=== PATIENT | male | born 1990 | race Caucasian/White ===

== ENCOUNTER 2016-11-13 13:25 | Emergency (ER) | payer OTHER ==
[~2016-11-13] VITALS: Ht 160 cm; Wt 122.8 kg
[~2016-11-13 13:25] MED LIST: ASPI325T45 PO; OXYC1TAB3 PO
[2016-11-13 13:44] VITALS: TEMP 36.9; Ht 160 cm; Wt 122.8 kg
[2016-11-13] MEDS ORDERED: SODIUM CHLORIDE 0.9% 1000ML 1,000 ML IV STA (14:16)
--- NOTE | 2016-11-13 14:54 | EMERGENCY ROOM VISIT NOTE ---
History First contact with patient: 14:03 Chief Complaint: BACK PAIN Stated Complaint: BACK PAIN History of Present Illness The patient is a 26 year old male who presents to the Emergency Room with complaints of right flank pain. The patient states that he has had pain in the low back and right flank for the last 4 days. He denies any injury. The patient rates his pain as 6/10. The patient states that the pain is across the low back, worse in the right low back and radiates to the right testicle. The pain is intermittent and sharp. He rates his discomfort a 6/10. The patient did notice 1 episode of bloody discharge from his penis. He denies any other discharge from his penis. He denies any dysuria, urgency or frequency. He denies any history of kidney stone. The patient was seen at [place] [facility] last night and had an x-ray of his low back and was given a prescription for Percocet. He states that he was concerned that there may be more going on. He did not fill the prescription for Percocet. Review of Systems A 10 system review of systems was completed with positives and pertinent negatives listed in the HPI. Past Medical/Surgical History None Social History Smoking Status: Current Some Day Smoker Alcohol Use: none Marital Status: single Housing Status: lives with significant other Occupation Status: employed Current/Historical Medications Scheduled Ciprofloxacin Hcl (Cipro), 500 MG PO BID Allergies Coded Allergies: Erythromycin (Unverified Allergy, Unknown, SWELLING,HIVES, 11/13/16) Penicillins (Unverified Allergy, Unknown, SWELLING,HIVES, 11/13/16) Physical Exam Vital Signs Date Time Temp Pulse Resp B/P Pulse Ox O2 Delivery O2 Flow Rate FiO2 11/13/16 17:23 80 18 149/66 98 Room Air 11/13/16 16:01 99 18 144/73 98 Room Air 11/13/16 15:02 79 18 152/78 97 Room Air 11/13/16 13:44 36.9 86 18 166/94 97 Room Air Physical Exam VITALS: Vitals are noted on the nurse's note and reviewed by myself. Vital signs stable. The patient is afebrile GENERAL: This is a 26-year-old male, in no acute distress, nondiaphoretic, well- developed well-nourished. SKIN: The skin was without rashes, erythema, edema, or bruising. There is no tenting of the skin. Capillary reflex less than 2 seconds. HEAD: Normocephalic atraumatic. EARS: The external ears are normal in appearance EYES: Pupils equal round and reactive to light and accommodation. Conjunctivae without injection, sclerae without icterus. Extraocular movements intact. NOSE: Patent, turbinates without inflammation or discharge. MOUTH: Mucous membranes moist. Tonsils are not enlarged. Pharynx without erythema or exudate. Uvula midline. Airway patent. Tongue does not deviate. NECK: Supple without nuchal rigidity. No JVD. HEART: Regular rate and rhythm without murmurs gallops or rubs. LUNGS: Clear to auscultation bilaterally without wheezes, rales or rhonchi. No retractions or accessory muscle use. ABDOMEN: Positive bowel sounds x 4. Soft, nontender, without masses or organomegaly. Hope sign negative. : The external genitalia is normal in appearance. There is no testicular edema or tenderness. There is no discharge from the penis. There are no penile rashes. The patient does have significant point tenderness with palpation in the area of the perineum. MUSCULOSKELETAL: No muscle atrophy, erythema, or edema noted. Full range of motion in all extremities. Normal gait. Strength 5/5 throughout. NEURO: Patient was alert and oriented to person place and time. No focal neurological deficits. Medical Decision & Procedures ER Provider Diagnostic Interpretation: [~ rep ct add3]] CT SCAN OF THE ABDOMEN AND PELVIS WITHOUT IV CONTRAST CLINICAL HISTORY: Back pain. Right flank pain. COMPARISON STUDY: No priors. TECHNIQUE: CT scan of the abdomen and pelvis is performed from the lung bases to the proximal femora. Images are reviewed in the axial, sagittal, and coronal planes. IV contrast was not administered for this examination as per the referring clinician. Automated dose control exposure was utilized. CT DOSE: 1758.73 mGy.cm FINDINGS: Lung bases: The heart is normal in size and without pericardial effusion. The lung bases are clear. Gynecomastia is noted. Liver: The unenhanced liver is enlarged, measuring 20 cm in length. The liver demonstrates diffusely to most attenuation consistent with severe hepatic steatosis. Fatty sparing is seen adjacent to gallbladder fossa. There is no intrahepatic biliary ductal dilatation. Gallbladder: Unremarkable. Spleen: Normal in size and attenuation. Pancreas: Unremarkable. Adrenal glands: Unremarkable. Kidneys: The unenhanced kidneys are normal in size and without hydronephrosis. There is a 3 mm nonobstructing calculus in the interpolar right kidney and a 2 mm nonobstructing calculus in the upper pole of the left kidney. There is no evidence of contour deforming renal mass lesion. Abdominal vasculature: The abdominal aorta is normal in course and caliber. Bowel: The small bowel and colon are normal in course and caliber. There is mild colonic fecal retention. The appendix is not identified and reported surgically absent. Peritoneum: There is no intraperitoneal free air or abdominal ascites. There is a fat-containing umbilical hernia. Lymphadenopathy: None. Pelvic viscera: The bladder, prostate, and seminal vesicles are normal as visualized. Skeletal structures: No lytic or blastic lesions are seen. IMPRESSION: 1. There are no acute infectious or inflammatory findings in the abdomen or pelvis. 2. Hepatomegaly and severe hepatic steatosis. 3. There are small bilateral nonobstructing renal calculi. 4. Additional findings as above. Laboratory Results 11/13/16 14:57 Red Blood Count 4.78, Mean Corpuscular Volume 85.6, Mean Corpuscular Hemoglobin 31.4, Mean Corpuscular Hemoglobin Concent 36.7, Mean Platelet Volume 11.0, Neutrophils (%) (Auto) 70.3, Lymphocytes (%) (Auto) 21.2, Monocytes (%) (Auto) 6.5, Eosinophils (%) (Auto) 1.4, Basophils (%) (Auto) 0.2, Neutrophils # (Auto) 7.83, Lymphocytes # (Auto) 2.36, Monocytes # (Auto) 0.72, Eosinophils # (Auto) 0.16, Basophils # (Auto) 0.02 11/13/16 14:57 Test 11/13/16 14:57 11/13/16 15:00 White Blood Count 11.14 K/uL (4.8-10.8) Red Blood Count 4.78 M/uL (4.7-6.1) Hemoglobin 15.0 g/dL (14.0-18.0) Hematocrit 40.9 % (42-52) Mean Corpuscular Volume 85.6 fL (80-100) Mean Corpuscular Hemoglobin 31.4 pg (25-34) Mean Corpuscular Hemoglobin Concent 36.7 g/dl (32-36) Platelet Count 270 K/uL (130-400) Mean Platelet Volume 11.0 fL (7.4-10.4) Neutrophils (%) (Auto) 70.3 % Lymphocytes (%) (Auto) 21.2 % Monocytes (%) (Auto) 6.5 % Eosinophils (%) (Auto) 1.4 % Basophils (%) (Auto) 0.2 % Neutrophils # (Auto) 7.83 K/uL (1.4-6.5) Lymphocytes # (Auto) 2.36 K/uL (1.2-3.4) Monocytes # (Auto) 0.72 K/uL (0.11-0.59) Eosinophils # (Auto) 0.16 K/uL (0-0.5) Basophils # (Auto) 0.02 K/uL (0-0.2) RDW Standard Deviation 38.9 fL (36.4-46.3) RDW Coefficient of Variation 12.5 % (11.5-14.5) Immature Granulocyte % (Auto) 0.4 % Immature Granulocyte # (Auto) 0.05 K/uL (0.00-0.02) Anion Gap 8.0 mmol/L (3-11) Est Creatinine Clear Calc Drug Dose 144.8 ml/min Estimated GFR () 134.3 Estimated GFR (Non- 115.9 BUN/Creatinine Ratio 13.5 (10-20) Calcium Level 9.2 mg/dl (8.5-10.1) Total Bilirubin 0.5 mg/dl (0.2-1) Aspartate Amino Transf (AST/SGOT) 41 U/L (15-37) Alanine Aminotransferase (ALT/SGPT) 77 U/L (12-78) Alkaline Phosphatase 69 U/L (45-117) Total Protein 8.1 gm/dl (6.4-8.2) Albumin 4.3 gm/dl (3.4-5.0) Globulin 3.8 gm/dl (2.5-4.0) Albumin/Globulin Ratio 1.1 (0.9-2) Lipase 89 U/L (73-393) Urine Color YELLOW Urine Appearance CLEAR (CLEAR) Urine pH 5.0 (4.5-7.5) Urine Specific [place] 1.020 (1.000-1.030) Urine Protein NEG (NEG) Urine Glucose (UA) NEG (NEG) Urine Ketones NEG (NEG) Urine Occult Blood NEG (NEG) Urine Nitrite NEG (NEG) Urine Bilirubin NEG (NEG) Urine Urobilinogen NEG (NEG) Urine Leukocyte Esterase TRACE (NEG) Urine WBC (Auto) 5-10 /hpf (0-5) Urine RBC (Auto) 0-4 /hpf (0-4) Urine Hyaline Casts (Auto) 1-5 /lpf (0-5) Urine Epithelial Cells (Auto) >30 /lpf (0-5) Urine Bacteria (Auto) NEG (NEG) Medications Administered Medications (Trade) Dose Ordered Sig/Mavis Route Start Time Stop Time Status Last Admin Dose Admin Sodium Chloride (Nss 1000ml) 1,000 ml @ 999 mls/hr Q1H1M STAT IV 11/13/16 14:16 11/13/16 15:16 DC 11/13/16 15:01 999 MLS/HR ED Course The patient was seen and examined. Previous visits were reviewed. The patient does not have a fever. He does have a mild leukocytosis of 11.14. He does not have any significant electrolyte abnormalities. AST was slightly elevated at 41. Lipase was not elevated. Urinalysis reveals pyuria but there are also greater than [address] scan was obtained as above. The patient does have hepatic steatosis. He has nephrolithiasis but no ureterolithiasis. The CT scan was otherwise unremarkable. The patient was hydrated with normal saline He declined a testicular ultrasound or STD testing The patient presents to the emergency department complaining of diffuse low back pain, particularly worse on the right and it radiates into the testicle. He does have white blood cells on his urinalysis. He has a very mild leukocytosis. CT imaging does not reveal the exact cause. The patient did have 1 episode of bleeding from his penis. The patient is point tender in the area of the perineum. It is possible this could represent a prostatitis. He will be placed on Cipro twice a day 14 days. This could represent a passed kidney stone. The patient should follow-up with his family doctor regarding hepatic steatosis and for a recheck. He could also follow up with urology. He should return to the ER with any worsening symptoms. The patient does not have any pain radiating into the legs. He does not have any neurologic deficit on exam or by history. He has had an appendectomy. I do not suspect an acute surgical emergency. The patient does not have an acute abdomen. The case was discussed with Dr. Saba who agrees with the assessment and treatment plan Medical Decision DIFFERENTIAL DIAGNOSIS: Hepatitis, cholecystitis, cholangitis, biliary colic, pancreatitis, pneumonia, subdiaphragmatic abscess, appendicitis, inguinal hernia , nephrolithiasis, inflammatory bowel disease, mesenteric adenitis, peptic ulcer disease, GERD, gastritis, pancreatitis, gastroenteritis, bowel obstruction , splenic infarct, diverticulitis, mesenteric ischemia, metabolic, peritonitis , STD, prostatitis, epididymitis, among others. Impression Primary Impression: Prostatitis Additional Impression: Back pain Departure Information Dispostion Home / Self-Care Condition GOOD Prescriptions Ciprofloxacin Hcl (CIPRO) 500 Mg Tab 500 MG PO BID for 14 Days, #28 TAB 1 Refill Prov: Cassy Katz PA-C 11/13/16 Referrals No Doctor, Assigned (PCP) Leighton Ivy M.D. Patient Instructions ED Prostatitis, [facility] Additional Instructions Cipro every 12 hours for 14 days; You may need a second course if symptoms do not resolve contact a urologist to schedule a follow-up appointment for further evaluation and management Take the pain medication you were prescribed as needed, as prescribed Return to the emergency Department with any changing or worsening symptoms Problem Qualifiers Primary Impression: Prostatitis Prostatitis type: acute Qualified Codes: N41.0 - Acute prostatitis Additional Impression: Back pain Back pain location: low back pain Chronicity: acute Back pain laterality: right Sciatica presence: without sciatica Qualified Codes: M54.5 - Low back pain
[2016-11-13 15:13] LABS: BASO % 0.2 %; BASO ABS # 0.02 K/uL (0-0.2); COMPLETE YES; EOS % 1.4 %; HEMATOCRIT 40.9 % (42-52); IG% 0.4 %; LYMPH % 21.2 %; LYMPH ABS # 2.36 K/uL (1.2-3.4); MEAN CELL VOLUME 85.6 fL (80-100); MEAN CORPUSCULAR HEMOGLOBIN 31.4 pg (25-34); MEAN CORPUSCULAR HGB CONC 36.7 g/dl (32-36); MONO % 6.5 %; NEUT % 70.3 %; PLATELET COUNT 270 K/uL (130-400); RED BLOOD COUNT 4.78 M/uL (4.7-6.1); WHITE BLOOD COUNT 11.14 K/uL (4.8-10.8)
[2016-11-13] MEDS ORDERED: CEFAZOLIN SOD 1 GM VIAL ONE (15:23)
[2016-11-13 15:24] LABS: URINE APPEARANCE CLEAR (CLEAR); URINE BILIRUBIN NEG (NEG); URINE COLOR YELLOW; URINE EPITHELIAL CELL AUTO >30 /lpf (0-5); URINE NITRITE NEG (NEG); UROBILINOGEN NEG (NEG); ZZUR CULT IF INDIC CLEAN CATCH NO
[2016-11-13 15:33] LABS: BUN/CREATININE RATIO 13.5 (10-20); CALCIUM 9.2 mg/dl (8.5-10.1); CREATININE 0.91 mg/dl (0.60-1.40); POTASSIUM 3.9 mmol/L (3.5-5.1)
[2016-11-13 15:33] LABS: MANUAL MICROSCOPIC REQUIRED? NO; REVIEW REQ? NO
[2016-11-13 15:36] LABS: ALB/GLOB RATIO 1.1 (0.9-2)
--- NOTE | 2016-11-13 15:43 | DIAGNOSTIC IMAGING REPORT ---
CT SCAN OF THE ABDOMEN AND PELVIS WITHOUT IV CONTRAST CLINICAL HISTORY: Back pain. Right flank pain. COMPARISON STUDY: No priors. TECHNIQUE: CT scan of the abdomen and pelvis is performed from the lung bases to the proximal femora. Images are reviewed in the axial, sagittal, and coronal planes. IV contrast was not administered for this examination as per the referring clinician. Automated dose control exposure was utilized. CT DOSE: 1758.73 mGy.cm FINDINGS: Lung bases: The heart is normal in size and without pericardial effusion. The lung bases are clear. Gynecomastia is noted. Liver: The unenhanced liver is enlarged, measuring 20 cm in length. The liver demonstrates diffusely to most attenuation consistent with severe hepatic steatosis. Fatty sparing is seen adjacent to gallbladder fossa. There is no intrahepatic biliary ductal dilatation. Gallbladder: Unremarkable. Spleen: Normal in size and attenuation. Pancreas: Unremarkable. Adrenal glands: Unremarkable. Kidneys: The unenhanced kidneys are normal in size and without hydronephrosis. There is a 3 mm nonobstructing calculus in the interpolar right kidney and a 2 mm nonobstructing calculus in the upper pole of the left kidney. There is no evidence of contour deforming renal mass lesion. Abdominal vasculature: The abdominal aorta is normal in course and caliber. Bowel: The small bowel and colon are normal in course and caliber. There is mild colonic fecal retention. The appendix is not identified and reported surgically absent. Peritoneum: There is no intraperitoneal free air or abdominal ascites. There is a fat-containing umbilical hernia. Lymphadenopathy: None. Pelvic viscera: The bladder, prostate, and seminal vesicles are normal as visualized. Skeletal structures: No lytic or blastic lesions are seen. IMPRESSION: 1. There are no acute infectious or inflammatory findings in the abdomen or pelvis. 2. Hepatomegaly and severe hepatic steatosis. 3. There are small bilateral nonobstructing renal calculi. 4. Additional findings as above. Electronically signed by: Cortez Tyson M.D. 11/13/2016 3:41 PM Dictated Date/Time: 11/13/2016 3:37 PM
[2016-11-13] MEDS ORDERED: CIPR-255 PO (16:46)
[2016-11-13 17:23] VITALS: BP 149/66; PULSE 80; O2SAT 98
== END 2016-11-13 17:24 | disposition home or self-care (01) ==
LOC: C.EDB 13:26
DX: N41.9 Inflammatory disease of prostate, unspecified (principal); M54.5 Low back pain; K76.0 Fatty (change of) liver, not elsewhere classified; N20.0 Calculus of kidney; F17.200 Nicotine dependence, unspecified, uncomplicated; Z88.0 Allergy status to penicillin; Z88.1 Allergy status to other antibiotic agents

== ENCOUNTER 2017-02-12 14:25 | Emergency (ER) | payer OTHER ==
[~2017-02-12] VITALS: Ht 160 cm; Wt 129.0 kg
[~2017-02-12 14:25] MED LIST changes: -ASPI325T45 PO; +CIPR-255 PO; -OXYC1TAB3 PO
[2017-02-12 14:35] VITALS: TEMP 36.8; Ht 160 cm; Wt 129.0 kg
[2017-02-12 15:07] LABS: MEAN CELL VOLUME 87.5 fL (80-100); MEAN CORPUSCULAR HEMOGLOBIN 30.6 pg (25-34); MEAN PLATELET VOLUME 10.9 fL (7.4-10.4); PLATELET COUNT 320 K/uL (130-400); WHITE BLOOD COUNT 12.62 K/uL (4.8-10.8)
[2017-02-12 15:18] LABS: PARTIAL THROMBOPLASTIN RATIO 1.1; PROTHROMBIN TIME (PATIENT) 10.4 SECONDS (9.0-12.0)
[2017-02-12 15:32] LABS: ALT/SGPT 75 U/L (12-78); AST/SGOT 39 U/L (15-37); BLOOD UREA NITROGEN 10 mg/dl (7-18); BUN/CREATININE RATIO 11.1 (10-20); CALCIUM 9.3 mg/dl (8.5-10.1); CARBON DIOXIDE 27 mmol/L (21-32); CHLORIDE 104 mmol/L (98-107); CREATININE 0.91 mg/dl (0.60-1.40); GLUCOSE 103 mg/dl (70-99); POTASSIUM 3.5 mmol/L (3.5-5.1); SODIUM 140 mmol/L (136-145)
--- NOTE | 2017-02-12 15:33 | DIAGNOSTIC IMAGING REPORT ---
CHEST ONE VIEW PORTABLE HISTORY: Evaluate Fever/Sepsis COMPARISON: Chest 01/31/2016. FINDINGS: Low lung volumes. Stable mild elevation of the right hemidiaphragm. The lungs are clear. No pleural effusions. No pneumothorax. The heart remains top normal in size. IMPRESSION: No significant change compared to the prior study. No acute process. Electronically signed by: Hans Houston M.D. 02/12/2017 3:31 PM Dictated Date/Time: 02/12/2017 3:30 PM
[2017-02-12 15:43] LABS: ALKALINE PHOSPHATASE 71 U/L (45-117); CKMB/CK RATIO 0.7 (0-3.0)
[2017-02-12 15:45] LABS: BASO % 0.2 %; BASO ABS # 0.03 K/uL (0-0.2); COMPLETE YES; EOS % 2.7 %; IG% 0.5 %; LYMPH % 24.9 %; LYMPH ABS # 3.14 K/uL (1.2-3.4); MONO % 6.5 %; NEUT % 65.2 %
--- NOTE | 2017-02-12 16:21 | EMERGENCY ROOM VISIT NOTE ---
History Report prepared by Pedro: Rubi Reynolds Under the Supervision of: Dr. Spike Erazo D.O. First contact with patient: 14:45 Chief Complaint: SHORTNESS OF BREATH Stated Complaint: CHEST PAIN,SOB History of Present Illness The patient is a 27 year old male who presents to the Emergency Room with complaints of an episode of chest pain earlier today. He was driving when he suddenly got chest pain and had difficulty breathing. The pain was present in the left side of his chest and under his armpit. The pain lasted for about 3 minutes then stopped. He has never had this pain before. He is currently able to breathe normally. His chest is slightly sore currently. He feels tired. He reports that he has had some back pain recently. He denies any swelling or pain in the legs. He denies any recent illness or trauma. Source of History: patient Onset: earlier today Position: chest (left) Quality: other (pain) Timing: other (episodic) Associated Symptoms: + SOB, + back pain, + fatigue Note: Pt denies leg swelling or pain. Review of Systems See HPI for pertinent positives & negatives. A total of 10 systems reviewed and were otherwise negative. Family History Cancer Diabetes mellitus Heart disease Hypertension Lung disease Social History Smoking Status: Former Smoker Alcohol Use: none Marital Status: single Housing Status: lives with significant other Occupation Status: employed Current/Historical Medications No Active Prescriptions or Reported Meds Allergies Coded Allergies: Erythromycin (Unverified Allergy, Unknown, SWELLING,HIVES, 02/12/17) Penicillins (Unverified Allergy, Unknown, SWELLING,HIVES, 02/12/17) Physical Exam Vital Signs Date Time Temp Pulse Resp B/P Pulse Ox O2 Delivery O2 Flow Rate FiO2 02/12/17 16:31 102 16 152/77 97 02/12/17 16:16 102 16 152/77 97 Room Air 02/12/17 14:51 Room Air 02/12/17 14:48 105 02/12/17 14:35 36.8 106 18 184/103 96 Room Air Physical Exam CONSTITUTIONAL/VITAL SIGNS: Reviewed / noted above. GENERAL: Non-toxic in appearance. INTEGUMENTARY: Warm, dry, and Alex. HEAD: Normocephalic. EYES: without scleral icterus or trauma. ENT/OROPHARYNX: clear and moist. LYMPHADENOPATHY/NECK: Is supple without lymphadenopathy or meningismus. RESPIRATORY: Lungs clear and equal. CARDIOVASCULAR: Regular rate and rhythm. GI/ABDOMEN: Soft and nontender. No organomegaly or pulsatile mass. No rebound or guarding. Normal bowel sounds. EXTREMITIES: Warm and well perfused. BACK: No CVA tenderness. NEUROLOGICAL: Intact without focal deficits. PSYCHIATRIC: normal affect. MUSCULOSKELETAL: Normally developed with good muscle tone. Medical Decision & Procedures ER Provider Diagnostic Interpretation: X ray results and stated below per my interpretation and radiology interpretation. CHEST ONE VIEW PORTABLE HISTORY: Evaluate Fever/Sepsis COMPARISON: Chest 01/31/2016. FINDINGS: Low lung volumes. Stable mild elevation of the right hemidiaphragm. The lungs are clear. No pleural effusions. No pneumothorax. The heart remains top normal in size. IMPRESSION: No significant change compared to the prior study. No acute process. Electronically signed by: Hans Houston M.D. 02/12/2017 3:31 PM Dictated Date/Time: 02/12/2017 3:30 PM Laboratory Results 02/12/17 14:50 Red Blood Count 4.80, Mean Corpuscular Volume 87.5, Mean Corpuscular Hemoglobin 30.6, Mean Corpuscular Hemoglobin Concent 35.0, Mean Platelet Volume 10.9, Neutrophils (%) (Auto) 65.2, Lymphocytes (%) (Auto) 24.9, Monocytes (%) (Auto) 6.5, Eosinophils (%) (Auto) 2.7, Basophils (%) (Auto) 0.2, Neutrophils # (Auto) 8.23, Lymphocytes # (Auto) 3.14, Monocytes # (Auto) 0.82, Eosinophils # (Auto) 0.34, Basophils # (Auto) 0.03 02/12/17 14:50 Test 02/12/17 14:50 White Blood Count 12.62 K/uL (4.8-10.8) Red Blood Count 4.80 M/uL (4.7-6.1) Hemoglobin 14.7 g/dL (14.0-18.0) Hematocrit 42.0 % (42-52) Mean Corpuscular Volume 87.5 fL (80-100) Mean Corpuscular Hemoglobin 30.6 pg (25-34) Mean Corpuscular Hemoglobin Concent 35.0 g/dl (32-36) Platelet Count 320 K/uL (130-400) Mean Platelet Volume 10.9 fL (7.4-10.4) Neutrophils (%) (Auto) 65.2 % Lymphocytes (%) (Auto) 24.9 % Monocytes (%) (Auto) 6.5 % Eosinophils (%) (Auto) 2.7 % Basophils (%) (Auto) 0.2 % Neutrophils # (Auto) 8.23 K/uL (1.4-6.5) Lymphocytes # (Auto) 3.14 K/uL (1.2-3.4) Monocytes # (Auto) 0.82 K/uL (0.11-0.59) Eosinophils # (Auto) 0.34 K/uL (0-0.5) Basophils # (Auto) 0.03 K/uL (0-0.2) RDW Standard Deviation 40.9 fL (36.4-46.3) RDW Coefficient of Variation 12.7 % (11.5-14.5) Immature Granulocyte % (Auto) 0.5 % Immature Granulocyte # (Auto) 0.06 K/uL (0.00-0.02) Prothrombin Time 10.4 SECONDS (9.0-12.0) Prothromb Time International Ratio 1.0 (0.9-1.1) Activated Partial Thromboplast Time 28.0 SECONDS (21.0-31.0) Partial Thromboplastin Ratio 1.1 D-Dimer < 190 ug/L FEU (0-500) Anion Gap 9.0 mmol/L (3-11) Est Creatinine Clear Calc Drug Dose 147.9 ml/min Estimated GFR () 133.4 Estimated GFR (Non- 115.1 BUN/Creatinine Ratio 11.1 (10-20) Calcium Level 9.3 mg/dl (8.5-10.1) Total Bilirubin 0.4 mg/dl (0.2-1) Direct Bilirubin < 0.1 mg/dl (0-0.2) Aspartate Amino Transf (AST/SGOT) 39 U/L (15-37) Alanine Aminotransferase (ALT/SGPT) 75 U/L (12-78) Alkaline Phosphatase 71 U/L (45-117) Total Creatine Kinase 260 U/L (39-308) Creatine Kinase MB 1.8 ng/ml (0.5-3.6) Creatine Kinase MB Ratio 0.7 (0-3.0) Troponin I < 0.015 ng/ml (0-0.045) Total Protein 7.9 gm/dl (6.4-8.2) Albumin 3.9 gm/dl (3.4-5.0) Lipase 99 U/L (73-393) Thyroid Stimulating Hormone (TSH) 1.610 uIu/ml (0.300-4.500) Laboratory results as stated above per my review. ECG Indication: chest pain Rate (beats per minute): 101 Rhythm: sinus tachycardia Findings: no ectopy, other (no acute injury) ED Course 1458: Previous medical records were reviewed. The patient was evaluated in room B7. A complete history and physical examination was performed. 1622: On reevaluation, the patient is resting comfortably. I discussed the results and findings with the patient. He verbalized agreement of the treatment plan. He was discharged home. Medical Decision the differential was considered includes acute myocardial infarction, acute coronary syndrome, myocarditis, pericarditis, pericardial effusions /tamponad, esophageal perforation, thoracic aortic dissection, pulmonary embolism, pneumonia, pneumothorax, pancreatitis, shingles, acute cholecystitis, perforated abdominal viscus. This is a 27-year-old obese male who presents to the ED with a chief complaint of left-sided sharp chest pain that happened suddenly and lasted for about 3 minutes. He states that he feels a little tired now. He came in for evaluation of his symptoms. The patient's resolve. His initial blood pressure was elevated. His heart rate was 106. EKG shows a sinus tach at a rate of 101. CBC and complete metabolic panel was normal. Troponin is negative. D- dimer is negative. A chest x-ray did not show acute disease. The patient was told results the test. He is felt to be stable for discharge. He did not require medication at this time. Impression Primary Impression: sharp left chest pain Scribe Attestation The scribe's documentation has been prepared under my direction and personally reviewed by me in its entirety. I confirm that the note above accurately reflects all work, treatment, procedures, and medical decision making performed by me. Departure Information Dispostion Home / Self-Care Prescriptions No Active Prescriptions or Reported Meds Referrals No Doctor, Assigned (PCP) Patient Instructions Chest Pain - [facility], [facility] Additional Instructions Follow-up with your doctor for further care and evaluation in 1-2 days if symptoms persist. Return to the emergency department for worsening or new symptoms or any concerns. You have been examined and treated today on an emergency basis only. This is not a substitute for, or an effort to provide, complete comprehensive medical care. It is impossible to recognize and treat all injuries or illnesses in a single emergency department visit. It is therefore important that you follow up closely with your doctor. Call as soon as possible for an appointment.
[2017-02-12 16:31] VITALS: BP 152/77; PULSE 102; O2SAT 97
[2017-08-11] MEDS ORDERED: DEXT-233 PO (13:50)
== END 2017-02-12 16:32 | disposition home or self-care (01) ==
LOC: C.EDB 14:26
DX: R07.9 Chest pain, unspecified (principal); R53.83 Other fatigue; M54.9 Dorsalgia, unspecified; R00.0 Tachycardia, unspecified; Z87.891 Personal history of nicotine dependence; Z83.3 Family history of diabetes mellitus; Z82.49 Family history of ischemic heart disease and other diseases of the circulatory system

== ENCOUNTER 2017-05-04 11:49 | Emergency (ER) | payer OTHER ==
[~2017-05-04] VITALS: Ht 160 cm; Wt 128.3 kg
[2017-05-04 11:59] VITALS: TEMP 36.9; Ht 160 cm; Wt 128.3 kg
--- NOTE | 2017-05-04 12:15 | EMERGENCY ROOM VISIT NOTE ---
History Report prepared by Pedro: Agatah Gibson Under the Supervision of: Dr. Saad Manjarrez M.D. First contact with patient: 12:08 Chief Complaint: SHORTNESS OF BREATH Stated Complaint: SWOLLEN FOOT,SOB History of Present Illness The patient is a 27 year old male who presents to the Emergency Room with complaints of constant swelling to the left foot beginning 3 days prior to arrival. The patient states that he was driving back from [place] when he noticed the swelling to his foot. He states occasional left calf cramping these past 3 days. He denies recent injuries or pain to the foot. The patient this morning experienced shortness of breath and left sided chest tightness. He denies pain with breathing. The patient notes for the past week he has occasional left arm numbness when he keeps it still for some time. He denies a headache. 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 A total of 10 systems reviewed and were otherwise negative. Past Medical & Surgical Surgical Problems: (1) S/P tonsillectomy Old medical records were reviewed. Nurse's notes were reviewed and I agree with. Family History Cancer Diabetes mellitus Heart disease Hypertension Lung disease Social History Smoking Status: Never Smoker Smokeless Tobacco Use: Yes Alcohol Use: none Marital Status: in relationship Housing Status: lives with significant other Occupation Status: employed Current/Historical Medications No Active Prescriptions or Reported Meds Allergies Coded Allergies: Erythromycin (Unverified Allergy, Unknown, SWELLING,HIVES, 05/04/17) Penicillins (Unverified Allergy, Unknown, SWELLING,HIVES, 05/04/17) Physical Exam Vital Signs Date Time Temp Pulse Resp B/P (MAP) Pulse Ox O2 Delivery O2 Flow Rate FiO2 05/04/17 15:06 78 20 168/98 98 05/04/17 14:45 78 20 168/98 98 Room Air 05/04/17 13:00 76 22 170/88 98 Room Air 05/04/17 12:32 98 Room Air 05/04/17 11:59 36.9 90 20 145/94 95 Room Air Physical Exam General: Well developed well nourished non ill in no acute distress young male, breathing comfortably on room air. Normal speech HEENT: Normal cephalic atraumatic. Pupils are equal round and reactive to light. Sclerae anicteric. Extraocular movements are intact. Oropharynx is pink with moist mucous membranes. No swelling of the mouth lips or tongue. Neck: Supple with a midline trachea. No meningeal signs or stiffness, no JVD or bruits. No Stridor. Chest: Clear to auscultation bilaterally. No wheezes or rhonchi. No increased work of breathing. Heart: regular rate and rhythm. Abdomen: Soft nontender, nondistended without rebound guarding or rigidity. Extremities: No cyanosis clubbing. No calf tenderness or assymetry. Minimal swelling to left lower leg, no warmth, minimal edema. Spine/Back. Non tender to palpation. No CVA tenderness Skin: Good turgor without rashes. Neurologic exam: Cranial nerves two through 12 are intact. Motor and sensation are intact and symmetrical throughout. Medical Decision & Procedures ER Provider Diagnostic Interpretation: Radiology results as stated below per my review and radiologist interpretation: LEFT VENOUS DOPP LOWER EXT UNILAT HISTORY: Leg swelling/pain TECHNIQUE: Multiple real-time sonographic images of the deep venous structures of the lower extremities were obtained assessing bruno scale, color Doppler flow and spectral waveform appearance. FINDINGS: LEFT LOWER EXTREMITY: The common femoral, profunda femoral, femoral, popliteal and greater saphenous veins demonstrated complete compressibility with external transducer pressure. Color and spectral wave forms appear normal. The posterior tibial and peroneal veins also appear normal. IMPRESSION: No sonographic evidence of deep venous thrombosis. Electronically signed by: Luis F Hernandez 05/04/2017 1:49 PM Dictated Date/Time: 05/04/2017 1:46 PM CHEST ONE VIEW PORTABLE CLINICAL HISTORY: CHEST PAIN dyspnea COMPARISON STUDY: 02/12/2017 FINDINGS: The bones soft tissues and hemidiaphragms are normal. The cardiomediastinal silhouette is normal. The lungs are clear. The pulmonary vasculature is normal. IMPRESSION: Negative chest. Electronically signed by: Nimesh Trimble M.D. 05/04/2017 12:32 PM Dictated Date/Time: 05/04/2017 12:32 PM Laboratory Results 05/04/17 11:20 Red Blood Count 4.92, Mean Corpuscular Volume 86.8, Mean Corpuscular Hemoglobin 30.3, Mean Corpuscular Hemoglobin Concent 34.9, Mean Platelet Volume 10.8, Neutrophils (%) (Auto) 67.7, Lymphocytes (%) (Auto) 22.4, Monocytes (%) (Auto) 7.3, Eosinophils (%) (Auto) 1.7, Basophils (%) (Auto) 0.2, Neutrophils # (Auto) 8.65, Lymphocytes # (Auto) 2.86, Monocytes # (Auto) 0.94, Eosinophils # (Auto) 0.22, Basophils # (Auto) 0.03 05/04/17 11:20 Test 05/04/17 11:20 05/04/17 12:30 White Blood Count 12.79 K/uL (4.8-10.8) Red Blood Count 4.92 M/uL (4.7-6.1) Hemoglobin 14.9 g/dL (14.0-18.0) Hematocrit 42.7 % (42-52) Mean Corpuscular Volume 86.8 fL (80-100) Mean Corpuscular Hemoglobin 30.3 pg (25-34) Mean Corpuscular Hemoglobin Concent 34.9 g/dl (32-36) Platelet Count 341 K/uL (130-400) Mean Platelet Volume 10.8 fL (7.4-10.4) Neutrophils (%) (Auto) 67.7 % Lymphocytes (%) (Auto) 22.4 % Monocytes (%) (Auto) 7.3 % Eosinophils (%) (Auto) 1.7 % Basophils (%) (Auto) 0.2 % Neutrophils # (Auto) 8.65 K/uL (1.4-6.5) Lymphocytes # (Auto) 2.86 K/uL (1.2-3.4) Monocytes # (Auto) 0.94 K/uL (0.11-0.59) Eosinophils # (Auto) 0.22 K/uL (0-0.5) Basophils # (Auto) 0.03 K/uL (0-0.2) RDW Standard Deviation 40.8 fL (36.4-46.3) RDW Coefficient of Variation 12.7 % (11.5-14.5) Immature Granulocyte % (Auto) 0.7 % Immature Granulocyte # (Auto) 0.09 K/uL (0.00-0.02) Anion Gap 9.0 mmol/L (3-11) Est Creatinine Clear Calc Drug Dose 134.1 ml/min Estimated GFR () 119.0 Estimated GFR (Non- 102.7 BUN/Creatinine Ratio 13.6 (10-20) Calcium Level 9.6 mg/dl (8.5-10.1) Total Bilirubin 0.5 mg/dl (0.2-1) Direct Bilirubin 0.1 mg/dl (0-0.2) Aspartate Amino Transf (AST/SGOT) 29 U/L (15-37) Alanine Aminotransferase (ALT/SGPT) 52 U/L (12-78) Alkaline Phosphatase 78 U/L (45-117) Total Protein 8.4 gm/dl (6.4-8.2) Albumin 4.2 gm/dl (3.4-5.0) Lipase 105 U/L (73-393) Thyroid Stimulating Hormone (TSH) 1.940 uIu/ml (0.300-4.500) Bedside D-Dimer 109 ng/mlFEU (0-450) Bedside Troponin I < 0.030 ng/ml (0-0.045) Laboratory studies as stated above per my review. ECG Indication: SOB/dyspnea Rate (beats per minute): 94 Rhythm: normal sinus Findings: no acute ischemic change, no ectopy Change: no significant change (from February 12, 2017) ED Course 1208: Past medical records reviewed. The patient was evaluated in room C12, and a complete history and physical examination were performed. 1345: I reevaluated the patient and he is resting comfortably. 1429: Upon reevaluation, the patient is hemodynamically stable. I discussed the results and treatment plan with the patient. He verbalized agreement of the treatment plan. The patient was discharged home. Medical Decision Differentials include, but are not limited to; DVT, PE, musculoskeletal pain, electrolyte or metabolic abnormalities. Medication Reconciliation: I attest that I have personally reviewed the patient' s current medication list. Blood pressure Screening: Patient was found to have an elevated blood pressure and was referred to their primary doctor for recheck and further treatment. This patient comes in as described above. He's complaining that his left foot feels a little swollen. He had a vague episode chest pain earlier today, he looks great at present and has no symptoms. His foot is minimally swollen and there is no redness or warmth or focal tenderness. There has been no injury. He is neurologically and neurovascularly intact. Ultrasound the leg was unremarkable and shows no DVT . He has no white count or fever to suggest infection. He has no acute electrolyte or metabolic abnormalities. His d- dimer is within normal limits and a low pretest probability study makes PE highly unlikely. Chest x-ray was unremarkable. EKG and cardiac enzymes were unremarkable. I do not think is likely cardiac. He feels good and would like to go home. I encouraged him to return if: increasing pain, fever or chills, worsening of symptoms, any new problems or concerns. He is happy with plan and discharged to home. Impression Primary Impression: Left foot pain Additional Impression: Left sided chest pain Scribe Attestation The scribe's documentation has been prepared under my direction and personally reviewed by me in its entirety. I confirm that the note above accurately reflects all work, treatment, procedures, and medical decision making performed by me. Departure Information Dispostion Home / Self-Care Prescriptions No Active Prescriptions or Reported Meds Referrals No Doctor, Assigned (PCP) Forms HOME CARE DOCUMENTATION FORM, IMPORTANT VISIT INFORMATION Patient Instructions My [facility] Additional Instructions Rest. Drink plenty of fluids. Return if: Increasing pain or swelling, redness or warmth, worsening of symptoms , fever or chills, any new problems or concerns Follow-up with your doctor Sunday for recheck Problem Qualifiers
--- NOTE | 2017-05-04 12:34 | DIAGNOSTIC IMAGING REPORT ---
CHEST ONE VIEW PORTABLE CLINICAL HISTORY: CHEST PAIN dyspnea COMPARISON STUDY: 02/12/2017 FINDINGS: The bones soft tissues and hemidiaphragms are normal. The cardiomediastinal silhouette is normal. The lungs are clear. The pulmonary vasculature is normal. IMPRESSION: Negative chest. Electronically signed by: Nimesh Trimble M.D. 05/04/2017 12:32 PM Dictated Date/Time: 05/04/2017 12:32 PM
[2017-05-04 12:44] LABS: BASO % 0.2 %; BASO ABS # 0.03 K/uL (0-0.2); COMPLETE YES; EOS % 1.7 %; HEMATOCRIT 42.7 % (42-52); IG% 0.7 %; LYMPH % 22.4 %; LYMPH ABS # 2.86 K/uL (1.2-3.4); MEAN CELL VOLUME 86.8 fL (80-100); MEAN CORPUSCULAR HEMOGLOBIN 30.3 pg (25-34); MEAN CORPUSCULAR HGB CONC 34.9 g/dl (32-36); MEAN PLATELET VOLUME 10.8 fL (7.4-10.4); MONO % 7.3 %; NEUT % 67.7 %; PLATELET COUNT 341 K/uL (130-400); RED BLOOD COUNT 4.92 M/uL (4.7-6.1); WHITE BLOOD COUNT 12.79 K/uL (4.8-10.8)
[2017-05-04 12:49] LABS: POINT OF CARE TROPONIN I < 0.030 ng/ml (0-0.045)
[2017-05-04 13:00] LABS: BUN/CREATININE RATIO 13.6 (10-20); CALCIUM 9.6 mg/dl (8.5-10.1); POTASSIUM 3.8 mmol/L (3.5-5.1)
[2017-05-04 13:27] LABS: THYROID STIMULATING HORMONE 1.94 uIu/ml (0.300-4.500)
--- NOTE | 2017-05-04 13:51 | DIAGNOSTIC IMAGING REPORT ---
LEFT VENOUS DOPP LOWER EXT UNILAT HISTORY: Leg swelling/pain TECHNIQUE: Multiple real-time sonographic images of the deep venous structures of the lower extremities were obtained assessing bruno scale, color Doppler flow and spectral waveform appearance. FINDINGS: LEFT LOWER EXTREMITY: The common femoral, profunda femoral, femoral, popliteal and greater saphenous veins demonstrated complete compressibility with external transducer pressure. Color and spectral wave forms appear normal. The posterior tibial and peroneal veins also appear normal. IMPRESSION: No sonographic evidence of deep venous thrombosis. Electronically signed by: Luis F Hernandez 05/04/2017 1:49 PM Dictated Date/Time: 05/04/2017 1:46 PM
[2017-05-04 15:06] VITALS: BP 168/98; PULSE 78; O2SAT 98
== END 2017-05-04 15:08 | disposition home or self-care (01) ==
LOC: C.EDB 11:50 → C.EDC 15:08
DX: M79.672 Pain in left foot (principal); R07.9 Chest pain, unspecified; Z80.9 Family history of malignant neoplasm, unspecified; Z83.3 Family history of diabetes mellitus; Z82.49 Family history of ischemic heart disease and other diseases of the circulatory system

== ENCOUNTER 2017-08-11 12:33 | Emergency (ER) | payer OTHER ==
[~2017-08-11] VITALS: Ht 160 cm; Wt 129.8 kg
[2017-08-11 12:35] VITALS: TEMP 37.2; Ht 160 cm; Wt 129.8 kg
[2017-08-11 12:58] VITALS: O2SAT 98
--- NOTE | 2017-08-11 13:18 | EMERGENCY ROOM VISIT NOTE ---
ED Visit Note First contact with patient: 12:40 Resident Physician Supervision Note: I interviewed and examined the patient. Discussed with Dr. Catalan and agree with findings and plan as documented in the note. Documented By: Spike Sapp Problem List Surgical Problems: (1) S/P tonsillectomy Status: Chronic Current/Historical Medications No Active Prescriptions or Reported Meds Allergies Coded Allergies: Erythromycin (Unverified Allergy, Unknown, SWELLING,HIVES, 05/04/17) Penicillins (Unverified Allergy, Unknown, SWELLING,HIVES, 05/04/17) Vital Signs Date Time Temp Pulse Resp B/P (MAP) Pulse Ox O2 Delivery O2 Flow Rate FiO2 08/11/17 13:00 112 08/11/17 12:58 98 Room Air 08/11/17 12:35 37.2 105 17 168/104 95 Room Air Departure Information Prescriptions No Active Prescriptions or Reported Meds Referrals No Doctor, Assigned (PCP) Patient Instructions My [facility]
[2017-08-11] MEDS ORDERED: METHYLPREDNISOLONE 125 MG VIAL IV STA (13:25)
--- NOTE | 2017-08-11 13:25 | EMERGENCY ROOM VISIT NOTE ---
History First contact with patient: 12:40 Chief Complaint: ILLNESS Stated Complaint: CHEST COLD WITH COUGHING UP BLOOD History of Present Illness The patient is a 27 year old male who presents to the Emergency Room with complaints of cough. The patient presents with cough for one week. The cough is a dry cough, and he states is getting presently worse. Now he is getting chest muscle discomforts and lightheaded with coughing. Initially had some upper respiratory symptoms such as sinus congestion and discharge, but this has since resolved. He denies any ear congestion, ear discharge, difficulty hearing, vertigo or dizziness. He denies sore throat, sinus congestion, or sinus tenderness. Patient felt sweaty and clammy, but has not measured any temperatures at home. His appetite has been poor and he has not eaten much in the past day. He also reports having 1 day of right leg cramping, spontaneously resolved on its own. He denies any gastro-intestinal symptoms such as nausea, vomiting, abdominal pain, diarrhea, or constipation. He has been urinating normally and does not have any dysuria or urinary frequency. The patient reports a history of sarcoidosis that was diagnosed in 2014. As result of this and the fact that he has a new 2-week-old baby at home, his insisted that he come to the emergency room to be evaluated further. Review of Systems A 10 point review of systems was negative unless stated above. Past Medical/Surgical History Surgical Problems: (1) S/P tonsillectomy Elevated Blood pressure, without diagnosis of HTN Sarcoidosis Surgery - Lung Biopsy - Tonsillectomy/Adenoidectomy - [place] teeth removed Family History Cancer Diabetes mellitus Heart disease Hypertension Lung disease Social History Smoking Status: Former Smoker Smokeless Tobacco Use: Yes Alcohol Use: none Marital Status: in relationship Housing Status: lives with significant other Occupation Status: employed Current/Historical Medications Scheduled Albuterol Hfa (Ventolin Hfa), 2-4 PUFFS INH Q6H Rytjojlihrfvfupw-Lozrjpttbq-Gx (Nighttime Multi-Symptom C), 1 CAP PO HS Levofloxacin (Levaquin), 750 MG PO DAILY Methylprednisolone (Medrol Dosepak), 1 PKT PO UD Scheduled PRN Albuterol Sulf (Albuterol Sulfate), 1 INHALER INH Q4H PRN for SOB/Wheezing Dextromethorphan-Phenylephrine (Day Time Multi-Symptom Co), 1 CAP PO UD PRN for COLD SYMPTOMS Allergies Erythromycin and Penicillin Physical Exam Vital Signs Date Time Temp Pulse Resp B/P (MAP) Pulse Ox O2 Delivery O2 Flow Rate FiO2 08/11/17 15:29 101 20 122/75 Room Air 08/11/17 15:04 97 108/87 99 Room Air 08/11/17 14:55 102 20 94 Room Air 08/11/17 14:01 106 18 122/82 95 Room Air 08/11/17 13:42 97 20 96 Room Air 08/11/17 13:00 112 08/11/17 12:58 98 Room Air 08/11/17 12:35 37.2 105 17 168/104 95 Room Air Physical Exam Constitutional: Vital signs as above were reviewed. Eyes: Pupils equal, round, and reactive to light. Extraocular muscles are intact. No proptosis. No photophobia. ENT: Mucous membranes are moist. Oropharynx is clear. No sinus tenderness. Cardiovascular: Heart with a regular rate and rhythm. No pedal edema appreciated. Respiratory: Mild end expiratory wheezing; no crackles; no intercostal retractions, nasal flaring, or sternocleidomastoid retractions. GI: Abdomen soft, nontender, nondistended. Normal active bowel sounds. No abdominal hernias appreciated. No rebound. No guarding. : No CVA tenderness appreciated. Musculoskeletal: No midline cervical or vertebral tenderness. No gross deformities. No bony tenderness. No calf swelling or tenderness. Integumentary: Warm, dry, no rashes appreciated. Neurological: Patient awake, alert, and oriented x 3. Lymph: No cervical lymphadenopathy appreciated. Medical Decision & Procedures ER Provider Diagnostic Interpretation: TWO VIEW CHEST CLINICAL HISTORY: Cough and dyspnea. Reported history of sarcoidosis. FINDINGS: PA and lateral chest radiographs are compared to study dated 05/04/2017. The examination is degraded by large body habitus. The cardiomediastinal silhouette is unremarkable. The lungs and pleural spaces are clear. There is no pneumothorax. The bony thorax appears intact. IMPRESSION: No active disease in the chest. Electronically signed by: Cortez Tyson M.D. 08/11/2017 2:27 PM Dictated Date/Time: 08/11/2017 2:27 PM The status of this report is Signed. Draft = Not yet reviewed or approved by Radiologist. Signed = Reviewed and approved by Radiologist Laboratory Results 08/11/17 13:30 Red Blood Count 4.64, Mean Corpuscular Volume 87.3, Mean Corpuscular Hemoglobin 29.7, Mean Corpuscular Hemoglobin Concent 34.1, Mean Platelet Volume 10.7, Neutrophils (%) (Auto) 75.6, Lymphocytes (%) (Auto) 15.1, Monocytes (%) (Auto) 6.2, Eosinophils (%) (Auto) 2.6, Basophils (%) (Auto) 0.1, Neutrophils # (Auto) 13.41, Lymphocytes # (Auto) 2.67, Monocytes # (Auto) 1.10, Eosinophils # (Auto) 0.47, Basophils # (Auto) 0.02 08/11/17 13:30 Test 08/11/17 13:30 08/11/17 13:32 White Blood Count 17.74 K/uL (4.8-10.8) Red Blood Count 4.64 M/uL (4.7-6.1) Hemoglobin 13.8 g/dL (14.0-18.0) Hematocrit 40.5 % (42-52) Mean Corpuscular Volume 87.3 fL (80-100) Mean Corpuscular Hemoglobin 29.7 pg (25-34) Mean Corpuscular Hemoglobin Concent 34.1 g/dl (32-36) Platelet Count 315 K/uL (130-400) Mean Platelet Volume 10.7 fL (7.4-10.4) Neutrophils (%) (Auto) 75.6 % Lymphocytes (%) (Auto) 15.1 % Monocytes (%) (Auto) 6.2 % Eosinophils (%) (Auto) 2.6 % Basophils (%) (Auto) 0.1 % Neutrophils # (Auto) 13.41 K/uL (1.4-6.5) Lymphocytes # (Auto) 2.67 K/uL (1.2-3.4) Monocytes # (Auto) 1.10 K/uL (0.11-0.59) Eosinophils # (Auto) 0.47 K/uL (0-0.5) Basophils # (Auto) 0.02 K/uL (0-0.2) RDW Standard Deviation 40.8 fL (36.4-46.3) RDW Coefficient of Variation 12.8 % (11.5-14.5) Immature Granulocyte % (Auto) 0.4 % Immature Granulocyte # (Auto) 0.07 K/uL (0.00-0.02) Anion Gap 9.0 mmol/L (3-11) Est Creatinine Clear Calc Drug Dose 158.9 ml/min Estimated GFR () 138.4 Estimated GFR (Non- 119.4 BUN/Creatinine Ratio 14.8 (10-20) Calcium Level 8.9 mg/dl (8.5-10.1) Bedside D-Dimer 343 ng/mlFEU (0-450) Medications Administered Medications (Trade) Dose Ordered Sig/Mavis Route Start Time Stop Time Status Last Admin Dose Admin Methylprednisolone Sodium Succinate (Solu-Medrol IV) 125 mg NOW STAT IV 08/11/17 13:25 08/11/17 13:28 DC 08/11/17 13:35 125 MG Miscellaneous (Xopenex/ Atrovent Neb) 1 ea ONE ONCE INH 08/11/17 13:30 08/11/17 13:31 DC 08/11/17 13:42 1 EA Sodium Chloride 500 ml @ 999 mls/hr Q31M ONCE IV 08/11/17 13:30 08/11/17 14:00 DC 08/11/17 13:38 999 MLS/HR Ipratropium [place] (Atrovent 0.02% 0.5MG/2.5ML Neb) 0.5 mg 1345 ONCE INH 08/11/17 13:45 08/11/17 13:46 DC 08/11/17 13:42 0.5 MG Levalbuterol (Xopenex 1.25MG/ 0.5ML Neb) 1.25 mg 1345 ONCE INH 08/11/17 13:45 08/11/17 13:46 DC 08/11/17 13:42 1.25 MG Ketorolac Tromethamine (Toradol Inj) 30 mg NOW STAT IV 08/11/17 14:26 08/11/17 14:28 DC 08/11/17 14:33 30 MG Albuterol/ Ipratropium (Duoneb) 12 ml ONE ONCE INH 08/11/17 14:30 08/11/17 14:31 DC 08/11/17 14:55 12 ML Levofloxacin (Levaquin Tab) 500 mg NOW STAT PO 08/11/17 14:26 08/11/17 14:28 DC 08/11/17 15:03 500 MG ED Course 13:05 - The patient was seen and evaluated by Dr. Jan Catalan MD [facility] 13:20 - Discussed with Dr. Spike Sapp, ER attending physician Labs: CBC, BMP, D-dimer, CXR Solu-medrol 125 mg IV, Xopenex/Atrovent treatment 14:30 - Levaquin, Dilaudid and Toradol ordered for the patient. 14:45 - Re-assessed patient; notes some mild relief Discussed with Dr. Sapp continuing nebulizers for additional 1 hour 15:30 - Re-assessed; patient feeling better Discussed discharge; patient amenable; will establish and follow-up with PCP Discharge paperwork complete Medical Decision 27-year-old male who presents with 1 week of URI symptoms a dry cough. Differential diagnoses include pneumonia, bronchitis, viral URI, pharyngitis, sinusitis. In the setting of having history of sarcoidosis, we do consider this and differentials well. PE was also considered in the differential diagnosis in the setting that the patient had noted some transient calf pain and had persistent shortness of breath. Fortunately d-dimer was negative and no further workup was pursued. The chest x-ray was unremarkable. We did note a white blood cell count of 17 which prompted suspicion for bacterial process. The patient was wheezing on examination, fortunately maintaining his saturations without additional oxygen support. The patient to get mild-moderate relief with nebulizer treatments in the ED. He was given medication to manage his pain. He was started on antibiotics and steroids in the emergency department and we discussed a plan with him to discharge him home with a short course of steroids and antibiotics to cover for bacterial infection. The patient was feeling better at the time of discharge and agreeable to this plan. He did say to us that he does not have a PCP at this time, but would make sure within the week to establish care with a PCP. The patient was stable at the time of discharge. He was discharged with instructions on home care and warning signs that should prompt a visit to a provider or back to the emergency room. Head Trauma GCS Score: 15 Blood Pressure Screening Patient's blood pressure: Normal blood pressure Blood pressure disposition: Elevated BP felt to be situational Impression Primary Impression: Bronchitis Departure Information Dispostion Home / Self-Care Condition GOOD Prescriptions Albuterol Sulf (Albuterol Sulfate) 2.5 Mg/3 Ml Nebu 1 INHALER INH Q4H Y for SOB/Wheezing for 7 Days, #15 UNITS try if inhaler is not helpful Prov: Jan Catalan MD 08/11/17 Levofloxacin (Levaquin) 750 Mg Tab 750 MG PO DAILY for 6 Days, #6 TAB Prov: Jan Catalan MD 08/11/17 Methylprednisolone (MEDROL DOSEPAK) 4 Mg Car 1 PKT PO UD for 6 Days, #1 PKT Prov: Jan Catalan MD 08/11/17 Albuterol Hfa (VENTOLIN HFA) 200 Puffs/32177 [place] 2-4 PUFFS INH Q6H for 30 Days, #1 INHALER Prov: Jan Catalan MD 08/11/17 Referrals No Doctor, Assigned (PCP) Patient Instructions My [facility] Additional Instructions You came to the emergency room for shortness of breath and coughing. We checked blood work and which suggested that you do have an infection. We checked a chest x-ray which didn't show a clear pneumonia but because your symptoms lasted for 7 days now, we started you on antibiotics here in the emergency room. We also gave you a dose of steroids. You did have some wheezing when you came in so we treated you with nebulizer treatments in the emergency room. At this time you can go home to continue your recovery. We will prescribe you with an antibiotic (Levaquin) to treat for possible pneumonia We will prescribe you an albuterol inhaler as well as albuterol nebulizer solution to take as needed for shortness of breath or wheezing We will give you a short course of steroids going home. After you go home, you need to establish with a primary care provider within 1 week of discharge. If your symptoms fail to improve or acutely worsen, please seek medical attention immediately by either calling your primary care provider or going to your nearest emergency department. Otherwise, please see your primary care provider within 1 week to ensure that your symptoms continue to improve. It was a pleasure to be involved in your care and we wish you all the best.
[2017-08-11] MEDS ORDERED: LEVALBUTEROL/IPRATROPIUM NEB INH ONE (13:30)
[2017-08-11] MEDS ORDERED: SODIUM CHLORIDE 0.9% 500ML 500 ML IV ONE (13:30)
[2017-08-11 13:42] VITALS: PULSE 97; O2SAT 96
[2017-08-11] MEDS ORDERED: IPRATROPIUM BROMIDE NEB SOLN 0.02% 2.5 ML VIAL INH ONE (13:45)
[2017-08-11] MEDS ORDERED: LEVALBUTEROL 1.25MG/0.5ML NEB INH ONE (13:45)
[2017-08-11 13:48] LABS: BASO % 0.1 %; BASO ABS # 0.02 K/uL (0-0.2); COMPLETE YES; EOS % 2.6 %; HEMATOCRIT 40.5 % (42-52); IG% 0.4 %; LYMPH % 15.1 %; LYMPH ABS # 2.67 K/uL (1.2-3.4); MEAN CELL VOLUME 87.3 fL (80-100); MEAN CORPUSCULAR HEMOGLOBIN 29.7 pg (25-34); MEAN CORPUSCULAR HGB CONC 34.1 g/dl (32-36); MEAN PLATELET VOLUME 10.7 fL (7.4-10.4); MONO % 6.2 %; NEUT % 75.6 %; PLATELET COUNT 315 K/uL (130-400); RED BLOOD COUNT 4.64 M/uL (4.7-6.1); WHITE BLOOD COUNT 17.74 K/uL (4.8-10.8)
[2017-08-11] MEDS ORDERED: DEXT1CAP PO (13:50)
[2017-08-11] MEDS ORDERED: DEXT1CAP36 PO (13:50)
[2017-08-11 14:05] LABS: BUN/CREATININE RATIO 14.8 (10-20); CALCIUM 8.9 mg/dl (8.5-10.1); CREATININE 0.85 mg/dl (0.60-1.40); POTASSIUM 3.6 mmol/L (3.5-5.1)
[2017-08-11] MEDS ORDERED: KETOROLAC TROMETHAMINE 30 MG/ML VIAL IV STA (14:26)
--- NOTE | 2017-08-11 14:29 | DIAGNOSTIC IMAGING REPORT ---
TWO VIEW CHEST CLINICAL HISTORY: Cough and dyspnea. Reported history of sarcoidosis. FINDINGS: PA and lateral chest radiographs are compared to study dated 05/04/2017. The examination is degraded by large body habitus. The cardiomediastinal silhouette is unremarkable. The lungs and pleural spaces are clear. There is no pneumothorax. The bony thorax appears intact. IMPRESSION: No active disease in the chest. Electronically signed by: Cortez Tyson M.D. 08/11/2017 2:27 PM Dictated Date/Time: 08/11/2017 2:27 PM
[2017-08-11] MEDS ORDERED: ALBUT/IPRATROP 3MG/0.5MG NEB 3 ML VIAL INH ONE (14:30)
[2017-08-11] MEDS: LEVOFLOXACIN 250 MG TAB PO STA ×2 (14:33→15:03)
[2017-08-11] MEDS ORDERED: METH4PAK PO (14:48)
[2017-08-11] MEDS ORDERED: LEVO1TAB35 PO (14:48)
[2017-08-11] MEDS ORDERED: ALBINSX INH (14:48)
[2017-08-11] MEDS ORDERED: VNTHFA/IN INH (14:48)
[2017-08-11 14:55] VITALS: PULSE 102; O2SAT 94
[2017-08-11 15:29] VITALS: BP 122/75; PULSE 101
== END 2017-08-11 15:55 | disposition home or self-care (01) ==
LOC: C.EDB 12:35
DX: J40 Bronchitis, not specified as acute or chronic (principal); D86.9 Sarcoidosis, unspecified; Z87.891 Personal history of nicotine dependence; Z83.3 Family history of diabetes mellitus; Z82.49 Family history of ischemic heart disease and other diseases of the circulatory system

== ENCOUNTER 2017-08-14 10:12 | Emergency (ER) | payer OTHER ==
[~2017-08-14] VITALS: Ht 160 cm; Wt 130.0 kg
[~2017-08-14 10:12] MED LIST changes: +ALBINSX INH; -CIPR-255 PO; +DEXT1CAP PO; +DEXT1CAP36 PO; +LEVO1TAB35 PO; +METH4PAK PO; +VNTHFA/IN INH
[2017-08-14 10:16] VITALS: TEMP 37.1; Ht 160 cm; Wt 130.0 kg
[2017-08-14] MEDS ORDERED: SODIUM CHLORIDE 0.9% 1000ML 1,000 ML IV STA (10:50)
[2017-08-14] MEDS ORDERED: PROCHLORPERAZINE 5 MG/ML 2 ML VIAL IV STA (10:50)
[2017-08-14] MEDS ORDERED: ACETAMINOPHEN 500 MG TAB PO STA (10:50)
[2017-08-14] MEDS ORDERED: DiphenhydrAMINE HCL 50 MG/ML VIAL IV STA (10:50)
[2017-08-14] MEDS ORDERED: KETOROLAC TROMETHAMINE 30 MG/ML VIAL IV STA (10:50)
--- NOTE | 2017-08-14 10:50 | EMERGENCY ROOM VISIT NOTE ---
History Report prepared by Pedro: Kalpana Perez Under the Supervision of: Dr. Raghavendra Pena M.D. First contact with patient: 10:29 Chief Complaint: INFECTION Stated Complaint: INFECTION History of Present Illness The patient is a 27 year old white male with a past medical history of sarcoid who presents to the ED with a cc of a constant headache since yesterday. His pain is located in the back of his head. He describes hi pain as "pressure" and rates it as a 6/10 in severity. His pain worsens with movement. The patient was seen in the ED a couple of days ago and they were concerned for a chest infection at that time. He was discharged home with a prescription for Levaquin. The patient was taking this medication for two days and then his headache started. He thinks that he might be having a reaction to the medication. Positive blurry vision and continued chest pain. Negative photophobia. Pt denies recent trauma or falls. Pt has been taking Tylenol for his headache without relief. Source of History: patient Onset: yesterday Position: head Symptom Intensity: 6/10 Quality: pressure Timing: constant Modifying Factors (Worsening): movement Associated Symptoms: + chest pain Note: Pt notes blurry vision but denies photophobia. Review of Systems See HPI for pertinent positives and negatives. A total of ten systems were reviewed and were otherwise negative. Past Medical & Surgical Surgical Problems: (1) S/P tonsillectomy Family History Cancer Diabetes mellitus Heart disease Hypertension Lung disease Social History Smoking Status: Former Smoker Alcohol Use: none Marital Status: in relationship Housing Status: lives with significant other Occupation Status: employed Current/Historical Medications Scheduled Albuterol Hfa (Ventolin Hfa), 2-4 PUFFS INH Q6H Levofloxacin (Levofloxacin), 750 MG PO DAILY Methylprednisolone (Methylprednisolone Dose P), 1 DOSE PO UD Allergies Coded Allergies: Erythromycin (Verified Allergy, Intermediate, SWELLING,HIVES, 08/14/17) Penicillins (Verified Allergy, Intermediate, SWELLING,HIVES, 08/14/17) Physical Exam Vital Signs Date Time Temp Pulse Resp B/P (MAP) Pulse Ox O2 Delivery O2 Flow Rate FiO2 08/14/17 13:13 83 18 99/75 95 08/14/17 12:31 86 17 129/74 96 Room Air 08/14/17 11:04 95 08/14/17 11:01 97 Room Air 08/14/17 10:16 37.1 92 18 157/89 98 Room Air Physical Exam GENERAL: Awake, alert, well-appearing, NAD HENT: Normocephalic, atraumatic.Scarring to right TM, left TM is retracted without fluid behind it. EYES: Normal conjunctiva. Sclera non-icteric. 20/50 in the right eye, 20/70 in the left eye. Vertical diplopia in left eye. Normal pressure less than 20 mmHg. NECK: Supple. No nuchal rigidity. FROM. RESPIRATORY: CTAB, no rhonchi, wheezing, crackles CARDIAC: RRR, no MRG ABDOMEN: Soft, NTND, BS+ MSK: No chest wall TTP, no LE edema NEURO: CN 2-12 intact, 5/5 upper and lower extremity strength, no dysmetria, no drift, good finger to nose, no sensory deficits. SKIN: No rash or jaundice noted. Medical Decision & Procedures ER Provider Diagnostic Interpretation: Radiology results as stated below per my review and radiologist interpretation: CT SCAN OF THE BRAIN WITHOUT IV CONTRAST CLINICAL HISTORY: Headache. COMPARISON STUDY: No priors. TECHNIQUE: Unenhanced axial CT scan of the brain is performed from the vertex to the skull base. A dose lowering technique was utilized adhering to the principles of ALARA. CT DOSE: 614.27 mGy.cm FINDINGS: Brain parenchyma: The brain parenchyma is normal in appearance. There is no hemorrhage, mass effect, or evidence of acute territorial ischemia by CT criteria. Jansen-white matter is preserved. No extra-axial fluid collection is seen. Ventricles, sulci, cisterns: Normal in configuration. Intracranial vasculature: The visualized intracranial vasculature at the skull base is normal in appearance. Calvarium: Unremarkable. Sinuses and mastoids: Trace mucosal thickening is seen in the ethmoid sinuses. The remaining visualized paranasal sinuses are clear. There is a large right mastoid effusion. The left mastoid air cells are well pneumatized. Orbits: The bony orbits are grossly intact. IMPRESSION: 1. No acute intracranial abnormality. 2. Large right mastoid effusion. Electronically signed by: Cortez Tyson M.D. 08/14/2017 11:36 AM Dictated Date/Time: 08/14/2017 11:34 AM Laboratory Results 08/14/17 11:00 Red Blood Count 4.96, Mean Corpuscular Volume 88.9, Mean Corpuscular Hemoglobin 29.6, Mean Corpuscular Hemoglobin Concent 33.3, Mean Platelet Volume 10.8, Neutrophils (%) (Auto) 69.9, Lymphocytes (%) (Auto) 16.6, Monocytes (%) (Auto) 8.5, Eosinophils (%) (Auto) 3.3, Basophils (%) (Auto) 0.2, Neutrophils # (Auto) 11.84, Lymphocytes # (Auto) 2.81, Monocytes # (Auto) 1.43, Eosinophils # (Auto) 0.55, Basophils # (Auto) 0.04 08/14/17 11:00 Test 08/14/17 11:00 White Blood Count 16.92 K/uL (4.8-10.8) Red Blood Count 4.96 M/uL (4.7-6.1) Hemoglobin 14.7 g/dL (14.0-18.0) Hematocrit 44.1 % (42-52) Mean Corpuscular Volume 88.9 fL (80-100) Mean Corpuscular Hemoglobin 29.6 pg (25-34) Mean Corpuscular Hemoglobin Concent 33.3 g/dl (32-36) Platelet Count 372 K/uL (130-400) Mean Platelet Volume 10.8 fL (7.4-10.4) Neutrophils (%) (Auto) 69.9 % Lymphocytes (%) (Auto) 16.6 % Monocytes (%) (Auto) 8.5 % Eosinophils (%) (Auto) 3.3 % Basophils (%) (Auto) 0.2 % Neutrophils # (Auto) 11.84 K/uL (1.4-6.5) Lymphocytes # (Auto) 2.81 K/uL (1.2-3.4) Monocytes # (Auto) 1.43 K/uL (0.11-0.59) Eosinophils # (Auto) 0.55 K/uL (0-0.5) Basophils # (Auto) 0.04 K/uL (0-0.2) RDW Standard Deviation 42.7 fL (36.4-46.3) RDW Coefficient of Variation 13.2 % (11.5-14.5) Immature Granulocyte % (Auto) 1.5 % Immature Granulocyte # (Auto) 0.25 K/uL (0.00-0.02) Prothrombin Time 10.5 SECONDS (9.0-12.0) Prothromb Time International Ratio 1.0 (0.9-1.1) Activated Partial Thromboplast Time 30.0 SECONDS (21.0-31.0) Partial Thromboplastin Ratio 1.2 Anion Gap 7.0 mmol/L (3-11) Est Creatinine Clear Calc Drug Dose 146.9 ml/min Estimated GFR () 131.6 Estimated GFR (Non- 113.6 BUN/Creatinine Ratio 14.2 (10-20) Calcium Level 8.9 mg/dl (8.5-10.1) Laboratory results reviewed by me. Medications Administered Medications (Trade) Dose Ordered Sig/Mavis Route Start Time Stop Time Status Last Admin Dose Admin Prochlorperazine Edisylate (Compazine Inj) 10 mg NOW STAT IV 08/14/17 10:50 08/14/17 10:54 DC 08/14/17 11:11 10 MG Sodium Chloride 1,000 ml @ 999 mls/hr Q1H1M STAT IV 08/14/17 10:50 08/14/17 11:50 DC 08/14/17 11:09 999 MLS/HR Ketorolac Tromethamine (Toradol Inj) 30 mg NOW STAT IV 08/14/17 10:50 08/14/17 10:54 DC 08/14/17 11:12 30 MG Acetaminophen (Tylenol Tab) 1,000 mg NOW STAT PO 08/14/17 10:50 08/14/17 10:54 DC 08/14/17 11:09 1,000 MG Diphenhydramine HCl (Benadryl Inj) 50 mg NOW STAT IV 08/14/17 10:50 08/14/17 10:54 DC 08/14/17 11:10 50 MG ECG Indication: chest pain Rate (beats per minute): 86 Rhythm: normal sinus Findings: no acute ischemic change, no ectopy, other (T-wave flattening lead 3 ; normal axis) ED Course 1032: The patient was evaluated in room B12B. A complete history and physical exam was performed. 1050: Benadryl 50 mg IV, Tylenol tab 1000 mg PO, Toradol 30 mg IV, NSS 1000 ml @ 999 mls/hr IV, Compazine 10 mg IV 1244: At this time I performed a bedside US which did not show any concern for vitreous or retinal hemorrhage, unable to get accurate optic nerve measure. At this time the patient was feeling better. I discussed the results and treatment plan with the patient. I answered all pertaining questions that he had. He expressed understanding and verbalized agreement. The patient will be discharged home. Medical Decision The patient is a 27 year old white male with a past medical history of sarcoid who presents to the ED with a cc of a constant headache since yesterday. Differential diagnosis: Etiologies such as migraine headache, meningitis, sinusitis, CO exposure, ICH, SAH, infection, tumor, headache, sinus thrombosis, arterial dissection, as well as others were entertained. Patient was seen and evaluated at the bedside. Patient was complaining of a headache. Patient only complained of some blurry vision but no other issues. On exam patient had no APD full extraocular movements or proptosis, no hyphema or hypopyon. Patient does not have any conjunctival injection. Patient denies any photophobia. Patient did have no visual field deficits. Patient's visual acuity as documented in exam. Patient was complaining of vertical diplopia with monocular vision which is strange given that he typically need both eyes have double vision. Less likely central etiology. Patient pressures and BS US showed. Patient was given referral to ophtho. Patient has no neuro deficits. Patient had noted mastoid effusion on CT but no bulging of the posterior auricle or mastoid pain. Less likely mastoiditis. Patient was told to continue tylenol, steroids and abx. Patient feeling improved. BOYCE improved. No neuro deficits. BSUS completed, no evidence of retinal or vitreous hemorrhage. Patient IOP checked and less than 20 mmHg b/l. Patient BOYCE resolved. Given H&P and short time course less likely SUPPORT SERVICES MANAGER. Patient told to f/u w/ ophtho or electrical wiring lineman. Patient given f/u, d/c, and return precautions. Patient agreed w/ POC and was d/c'ed to home. Medication Reconcilliation Current Medication List: was personally reviewed by me Blood Pressure Screening Patient's blood pressure: Normal blood pressure Impression Primary Impression: Blurry vision Additional Impression: Headache Scribe Attestation The scribe's documentation has been prepared under my direction and personally reviewed by me in its entirety. I confirm that the note above accurately reflects all work, treatment, procedures, and medical decision making performed by me. Departure Information Dispostion Home / Self-Care Referrals No Doctor, Assigned (PCP) Jamey Sanchez M.D. Patient Instructions Headache Pain, My [facility] Additional Instructions Please return to the emergency department if you have worsening or recurrent symptoms not amenable to at-home treatment. Please call for a follow-up appointment with her primary care physician. Please take your medications as prescribed. If you have other concerns and/or complaints please feel free to also call your primary care physician's office or return the ED for further evaluation, management, and treatment. You may take tylenol 1000mg every 6 hours as needed for pain. Please follow up with an electrical wiring lineman and/or ophthamologist for your blurry vision. You have been examined and treated today on an emergency basis only. This is not a substitute for, or an effort to provide, complete comprehensive medical care. It is impossible to recognize and treat all injuries or illnesses in a single emergency department visit. It is therefore important that you follow up closely with [facility]. Call as soon as possible for an appointment. Thank you for your time and consideration. I look forward to speaking with you again soon. Please don't hesitate to call us if you have any questions. Problem Qualifiers Additional Impression: Headache Headache type: unspecified Headache chronicity pattern: acute headache Intractability: not intractable Qualified Codes: R51 - Headache
[2017-08-14 11:01] VITALS: O2SAT 97
[2017-08-14] MEDS ORDERED: MDRDP21 PO (11:10)
[2017-08-14] MEDS ORDERED: LVQ750 PO (11:10)
[2017-08-14 11:16] LABS: BASO % 0.2 %; BASO ABS # 0.04 K/uL (0-0.2); COMPLETE YES; EOS % 3.3 %; HEMATOCRIT 44.1 % (42-52); IG% 1.5 %; LYMPH % 16.6 %; LYMPH ABS # 2.81 K/uL (1.2-3.4); MEAN CELL VOLUME 88.9 fL (80-100); MEAN CORPUSCULAR HEMOGLOBIN 29.6 pg (25-34); MEAN CORPUSCULAR HGB CONC 33.3 g/dl (32-36); MEAN PLATELET VOLUME 10.8 fL (7.4-10.4); MONO % 8.5 %; NEUT % 69.9 %; PLATELET COUNT 372 K/uL (130-400); RED BLOOD COUNT 4.96 M/uL (4.7-6.1); WHITE BLOOD COUNT 16.92 K/uL (4.8-10.8)
[2017-08-14 11:25] LABS: PARTIAL THROMBOPLASTIN RATIO 1.2; PROTHROMBIN TIME (PATIENT) 10.5 SECONDS (9.0-12.0)
[2017-08-14 11:33] LABS: BUN/CREATININE RATIO 14.2 (10-20); CALCIUM 8.9 mg/dl (8.5-10.1); CREATININE 0.92 mg/dl (0.60-1.40); POTASSIUM 3.8 mmol/L (3.5-5.1)
--- NOTE | 2017-08-14 11:38 | DIAGNOSTIC IMAGING REPORT ---
CT SCAN OF THE BRAIN WITHOUT IV CONTRAST CLINICAL HISTORY: Headache. COMPARISON STUDY: No priors. TECHNIQUE: Unenhanced axial CT scan of the brain is performed from the vertex to the skull base. A dose lowering technique was utilized adhering to the principles of ALARA. CT DOSE: 614.27 mGy.cm FINDINGS: Brain parenchyma: The brain parenchyma is normal in appearance. There is no hemorrhage, mass effect, or evidence of acute territorial ischemia by CT criteria. Jansen-white matter is preserved. No extra-axial fluid collection is seen. Ventricles, sulci, cisterns: Normal in configuration. Intracranial vasculature: The visualized intracranial vasculature at the skull base is normal in appearance. Calvarium: Unremarkable. Sinuses and mastoids: Trace mucosal thickening is seen in the ethmoid sinuses. The remaining visualized paranasal sinuses are clear. There is a large right mastoid effusion. The left mastoid air cells are well pneumatized. Orbits: The bony orbits are grossly intact. IMPRESSION: 1. No acute intracranial abnormality. 2. Large right mastoid effusion. Electronically signed by: Cortez Tyson M.D. 08/14/2017 11:36 AM Dictated Date/Time: 08/14/2017 11:34 AM
[2017-08-14 13:13] VITALS: BP 99/75; PULSE 83; O2SAT 95
== END 2017-08-14 13:14 | disposition home or self-care (01) ==
LOC: C.EDB 10:14
DX: R51 Headache (principal); H53.8 Other visual disturbances; Z87.891 Personal history of nicotine dependence; Z79.899 Other long term (current) drug therapy; Z80.9 Family history of malignant neoplasm, unspecified; Z83.3 Family history of diabetes mellitus; Z82.49 Family history of ischemic heart disease and other diseases of the circulatory system

== ENCOUNTER 2017-12-07 11:35 | Emergency (ER) | payer OTHER ==
[~2017-12-07] VITALS: Ht 160 cm; Wt 128.5 kg
[~2017-12-07 11:35] MED LIST changes: -ALBINSX INH; -DEXT1CAP PO; -DEXT1CAP36 PO; -LEVO1TAB35 PO; +LVQ750 PO; +MDRDP21 PO; -METH4PAK PO; -VNTHFA/IN INH
[2017-12-07 11:45] VITALS: TEMP 36.9; Ht 160 cm; Wt 128.5 kg
[2017-12-07] MEDS ORDERED: ULT50 PO (12:08)
[2017-12-07] MEDS ORDERED: FLM4 PO (12:08)
[2017-12-07] MEDS ORDERED: MoRPHine SULFATE 4 MG/ML 1 ML CARP\\VIAL IV PRN (12:15)
[2017-12-07] MEDS ORDERED: ONDANSETRON INJ 2 MG/ML 2 ML VIAL IV STA (12:15)
[2017-12-07] MEDS ORDERED: SODIUM CHLORIDE 0.9% 1000ML 1,000 ML IV STA (12:15)
[2017-12-07 12:36] LABS: BASO % 0.3 %; BASO ABS # 0.04 K/uL (0-0.2); EOS % 3.6 %; EOS ABS # 0.46 K/uL (0-0.5); HEMOGLOBIN 14.1 g/dL (14.0-18.0); IG# 0.07 K/uL (0.00-0.02); LYMPH % 24.8 %; LYMPH ABS # 3.13 K/uL (1.2-3.4); MEAN CELL VOLUME 87.6 fL (80-100); MEAN CORPUSCULAR HEMOGLOBIN 30.1 pg (25-34); MEAN CORPUSCULAR HGB CONC 34.4 g/dl (32-36); MEAN PLATELET VOLUME 10.7 fL (7.4-10.4); MONO % 6.8 %; MONO ABS # 0.86 K/uL (0.11-0.59); NEUT % 63.9 %; NEUT ABS # 8.07 K/uL (1.4-6.5); PLATELET COUNT 308 K/uL (130-400); RED CELL DISTRIBUTION WIDTH SD 41.3 fL (36.4-46.3); WHITE BLOOD COUNT 12.63 K/uL (4.8-10.8)
--- NOTE | 2017-12-07 12:53 | EMERGENCY ROOM VISIT NOTE ---
History Report prepared by Pedro: Judith Burns Under the Supervision of: Dr. Hola Saba D.O. First contact with patient: 12:09 Chief Complaint: URINARY SYMPTOMS Stated Complaint: KIDNEY PAIN Nursing Triage Summary: Kidney stones 3 weeks ago, stent was placed on right side. Surgery in [place]. Started with Percocet, and now pt has been taking Tramadol for pain with no relief. pt reports right flank pain, decreased output, hematuria. History of Present Illness The patient is a 27 year old male who presents to the Emergency Room with complaints of worsening urinary symptoms secondary to being diagnosed with kidney stones 3 weeks ago. He notes that he is experiencing bladder discomfort, which is somewhat relieved when he lays on his left side. The patient states that he has been experiencing nausea, vomiting, and hematuria. He describes his discomfort as "getting punched in kidney and groin". The patient states that his bowel movements cause bladder pain. He notes that his doctor is currently out of the country, which is why he decided to come to the Emergency Department. The patient states that he has a right stent in place, which he is supposed to get removed by his urologist on 12/18. He received 30 Tramadol on 11/29 , 8 Percocet on 11/28, 20 Percocet on 11/13, and 24 Percocet on 11/11. Source of History: patient Onset: 3 weeks ago Position: other (global) Quality: other (urinary symptoms) Timing: other (persistent ) Associated Symptoms: + nausea, + vomiting Note: Associated symptoms include: hematuria and bladder pain with bowel movements. Review of Systems See HPI for pertinent positives & negatives. A total of 10 systems reviewed and were otherwise negative. Past Medical & Surgical Surgical Problems: (1) S/P tonsillectomy Family History Cancer Diabetes mellitus Heart disease Hypertension Lung disease Social History Smoking Status: Former Smoker Alcohol Use: none Marital Status: in relationship Housing Status: lives with significant other Occupation Status: employed Current/Historical Medications Scheduled Levofloxacin (Levaquin), 500 MG PO DAILY Tamsulosin HCl (Tamsulosin HCl), 0.4 MG PO DAILY Tramadol HCl (Tramadol HCl), 50 MG PO NEEDED Scheduled PRN Oxycodone Immediate Rel Tab (Roxicodone Ir), 1-2 TAB PO Q4H PRN for Severe Pain Allergies Coded Allergies: Erythromycin (Verified Allergy, Intermediate, SWELLING,HIVES, 08/14/17) Penicillins (Verified Allergy, Intermediate, SWELLING,HIVES, 08/14/17) Physical Exam Vital Signs Date Time Temp Pulse Resp B/P (MAP) Pulse Ox O2 Delivery O2 Flow Rate FiO2 12/07/17 15:29 101 22 162/74 98 12/07/17 15:15 101 22 162/74 98 Room Air 12/07/17 11:45 36.9 98 18 147/92 100 Room Air Physical Exam GENERAL: Patient is awake, alert, and in no acute distress. Patient is resting comfortably and showing no signs of anxiety EYES: The conjunctivae are clear. The pupils are round and reactive. EARS, NOSE, MOUTH AND THROAT: The nose is without any evidence of any deformity. Mucous membranes are moist tongue is midline NECK: The neck is nontender and supple. RESPIRATORY: Normal respiratory effort is noted there is no evidence of wheezing rhonchi or rales CARDIOVASCULAR: Regular rate and rhythm noted there no murmurs rubs or gallops normal S1 normal S2 GASTROINTESTINAL: Abdomen is mildly distended but soft, not tenderness, guarding , or rigidity. Bowel sounds are present in all quadrants. PELVIS: The Pelvis is stable. No tenderness to palpation is noted. BACK: Right CVA tenderness to percussion. No midline tenderness and range of motion appears intact. MUSCULOSKELETAL/EXTREMITIES: There is no evidence of gross deformity full range of motion is noted in the hips and shoulders SKIN: There is no obvious evidence of any rash. There are no petechiae, pallor or cyanosis noted. NEUROLOGIC: Patient is awake alert and oriented x3 Medical Decision & Procedures ER Provider Diagnostic Interpretation: Radiology results as stated below per my review and radiologist interpretation: KUB HISTORY: Acute generalized abdominal pain ABDOMINAL PAIN/GI COMPARISON: CT abdomen and pelvis 11/13/2016. FINDINGS: The bowel gas pattern is non-obstructive. There is no organomegaly. Right-sided ureteral stent is in place without definite nephrolithiasis or ureteral calculi identified. No pneumoperitoneum or pneumatosis. No fracture. IMPRESSION: 1. Right ureteral stent without definite nephrolithiasis or ureteral calculi identified. 2. Nonobstructive bowel gas pattern. Electronically signed by: Luis F Hernandez M.D. 12/07/2017 1:17 PM Dictated Date/Time: 12/07/2017 1:16 PM ULTRASOUND KIDNEYS AND BLADDER CLINICAL HISTORY: Right flank pain. COMPARISON STUDY: Abdominal CT dated 11/13/2016. TECHNIQUE: Real-time, grayscale, and color flow sonography of the kidneys and bladder is performed. Images are reviewed in the transverse and longitudinal planes. FINDINGS: Kidneys: The kidneys are normal in size and echotexture. The right kidney measures 12.6 x 6.2 x 6.5 cm and the left kidney measures 12.0 x 5.8 x 5.5 cm. There is mild right-sided hydronephrosis, and a right ureteral stent is in place. No hydronephrosis is seen on the left. No shadowing renal calculi are identified. There is no sonographic evidence of contour deforming renal mass lesion. No perinephric fluid is identified. Bladder: The bladder is normal in appearance. A left ureteral jet was seen. The bladder contains the end of a right ureteral stent. Upper abdomen: Survey images of the liver show evidence of hepatomegaly and severe hepatic steatosis. IMPRESSION: 1. The kidneys are normal in size. No left-sided hydronephrosis is seen. 3. There is mild right hydronephrosis, and a right ureteral stent is in place. 3. The bladder is normal as visualized. 4. Hepatomegaly and severe hepatic steatosis. Electronically signed by: Cortez Tyson M.D. 12/07/2017 1:35 PM Dictated Date/Time: 12/07/2017 1:34 PM Laboratory Results 12/07/17 12:25 Red Blood Count 4.68, Mean Corpuscular Volume 87.6, Mean Corpuscular Hemoglobin 30.1, Mean Corpuscular Hemoglobin Concent 34.4, Mean Platelet Volume 10.7, Neutrophils (%) (Auto) 63.9, Lymphocytes (%) (Auto) 24.8, Monocytes (%) (Auto) 6.8, Eosinophils (%) (Auto) 3.6, Basophils (%) (Auto) 0.3, Neutrophils # (Auto) 8.07, Lymphocytes # (Auto) 3.13, Monocytes # (Auto) 0.86, Eosinophils # (Auto) 0.46, Basophils # (Auto) 0.04 12/07/17 12:25 Test 12/07/17 12:05 12/07/17 12:25 Urine Color RED Urine Appearance CLOUDY (CLEAR) Urine pH 6.0 (4.5-7.5) Urine Specific [place]yer 1.015 (1.000-1.030) Urine Protein 1+ (NEG) Urine Glucose (UA) NEG (NEG) Urine Ketones NEG (NEG) Urine Occult Blood 3+ (NEG) Urine Nitrite NEG (NEG) Urine Bilirubin NEG (NEG) Urine Urobilinogen NEG (NEG) Urine Leukocyte Esterase MODERATE (NEG) Urine RBC >30 /hpf (0-4) Urine WBC >30 /hpf (0-5) Urine Epithelial Cells 5-10 /lpf (0-5) Urine Bacteria NEG (NEG) White Blood Count 12.63 K/uL (4.8-10.8) Red Blood Count 4.68 M/uL (4.7-6.1) Hemoglobin 14.1 g/dL (14.0-18.0) Hematocrit 41.0 % (42-52) Mean Corpuscular Volume 87.6 fL (80-100) Mean Corpuscular Hemoglobin 30.1 pg (25-34) Mean Corpuscular Hemoglobin Concent 34.4 g/dl (32-36) Platelet Count 308 K/uL (130-400) Mean Platelet Volume 10.7 fL (7.4-10.4) Neutrophils (%) (Auto) 63.9 % Lymphocytes (%) (Auto) 24.8 % Monocytes (%) (Auto) 6.8 % Eosinophils (%) (Auto) 3.6 % Basophils (%) (Auto) 0.3 % Neutrophils # (Auto) 8.07 K/uL (1.4-6.5) Lymphocytes # (Auto) 3.13 K/uL (1.2-3.4) Monocytes # (Auto) 0.86 K/uL (0.11-0.59) Eosinophils # (Auto) 0.46 K/uL (0-0.5) Basophils # (Auto) 0.04 K/uL (0-0.2) RDW Standard Deviation 41.3 fL (36.4-46.3) RDW Coefficient of Variation 13.0 % (11.5-14.5) Immature Granulocyte % (Auto) 0.6 % Immature Granulocyte # (Auto) 0.07 K/uL (0.00-0.02) Anion Gap 6.0 mmol/L (3-11) Est Creatinine Clear Calc Drug Dose 141.3 ml/min Estimated GFR () 126.6 Estimated GFR (Non- 109.3 BUN/Creatinine Ratio 12.3 (10-20) Calcium Level 9.5 mg/dl (8.5-10.1) Total Bilirubin 0.4 mg/dl (0.2-1) Direct Bilirubin 0.1 mg/dl (0-0.2) Aspartate Amino Transf (AST/SGOT) 19 U/L (15-37) Alanine Aminotransferase (ALT/SGPT) 35 U/L (12-78) Alkaline Phosphatase 69 U/L (45-117) Total Protein 7.7 gm/dl (6.4-8.2) Albumin 3.9 gm/dl (3.4-5.0) Lipase 79 U/L (73-393) Laboratory results per my review. Medications Administered Medications (Trade) Dose Ordered Sig/Mavis Route Start Time Stop Time Status Last Admin Dose Admin Sodium Chloride 1,000 ml @ 999 mls/hr Q1H1M STAT IV 12/07/17 12:15 12/07/17 13:15 DC 12/07/17 12:33 999 MLS/HR Ondansetron HCl (Zofran Inj) 4 mg NOW STAT IV 12/07/17 12:15 12/07/17 12:17 DC 12/07/17 12:33 4 MG Morphine Sulfate (MoRPHine SULFATE INJ) 4 mg Q15M PRN IV 12/07/17 12:15 12/07/17 16:11 DC 12/07/17 12:34 4 MG Levofloxacin (Levaquin Tab) 500 mg NOW STAT PO 12/07/17 13:33 12/07/17 13:34 DC 12/07/17 14:12 500 MG ED Course 1213: The patient was evaluated in room C12. A complete history and physical examination were performed. 1215: Ordered Morphine Sulfate 4mg IV, Zofran Inj 4mg IV, and Sodium Chloride 1000ml @ 999 mls/hr. 1333: Levaquin Tab 500mg PO. 1338: I discussed the patient's case with Dr. Caitlin Yu, urology. She suggests the patient start out patient treatment on antibiotics and have him follow up with his urologist to have his STENT removed. 1517: Upon reevaluation, the patient is resting comfortably. I discussed the results and treatment plan with him. He verbalized agreement of the treatment plan. The patient was discharged home. Medical Decision Triage Nursing notes reviewed. Differential diagnosis: Etiologies such as renal colic, appendicitis, diverticulitis, mesenteric ischemia, aortic pathology, infections, inflammatory bowel disease, PUD, biliary pathology, UTI, as well as others were entertained. The patient is a 27-year-old male who presented to the emergency department for an evaluation of flank pain. The patient had recent ureteral manipulation with stent placement. He continues to have very significant pain. He tried to see his primary urologist but was unable to. The patient was treated with IV fluids IV pain medicine and IV anti-medics. His urinalysis appears to be consistent with infection so he was started on an antibiotic. I discussed the patient's laboratory and radiographic studies with him. I discussed his case with the on-call urology group. At this time I feel the patient can be seen as an outpatient. He was started on pain medication and an antibiotic. He was encouraged to continue all medications as prescribed and follow-up with his primary urologist as soon as possible. Otherwise he was encouraged to return to the emergency department immediately if symptoms change worsening of the need arises. Medication Reconcilliation Current Medication List: was personally reviewed by me Blood Pressure Screening Patient's blood pressure: Elevated blood pressure Blood pressure disposition: Elevated BP felt to be situational Impression Primary Impression: Kidney stone Additional Impression: Urinary tract infection Scribe Attestation The scribe's documentation has been prepared under my direction and personally reviewed by me in its entirety. I confirm that the note above accurately reflects all work, treatment, procedures, and medical decision making performed by me. Departure Information Dispostion Home / Self-Care Prescriptions Oxycodone Immediate Rel Tab (ROXICODONE IR) 5 Mg Tab 1-2 TAB PO Q4H Y for Severe Pain, #24 TAB Prov: Hola Saba, DO 12/07/17 Levofloxacin (Levaquin) 500 Mg Tab 500 MG PO DAILY, #10 TAB Prov: Hola Saba, DO 12/07/17 Referrals No Doctor, Assigned (PCP) Forms HOME CARE DOCUMENTATION FORM, IMPORTANT VISIT INFORMATION Patient Instructions My [facility] Additional Instructions Continue all medications as prescribed. Continue using Motrin and Tylenol as directed for mild pain. Call your primary urologist to schedule a follow-up appointment versus possible. Return to the emergency department immediately if symptoms change worsen or the need arises. Problem Qualifiers Additional Impression: Urinary tract infection Urinary tract infection type: site unspecified Hematuria presence: with hematuria Qualified Codes: N39.0 - Urinary tract infection, site not specified ; R31.9 - Hematuria, unspecified
[2017-12-07 13:04] LABS: ALBUMIN 3.9 gm/dl (3.4-5.0); CALCIUM 9.5 mg/dl (8.5-10.1); CREATININE 0.95 mg/dl (0.60-1.40)
[2017-12-07 13:07] LABS: TOTAL PROTEIN 7.7 gm/dl (6.4-8.2)
--- NOTE | 2017-12-07 13:19 | DIAGNOSTIC IMAGING REPORT ---
KUB HISTORY: Acute generalized abdominal pain ABDOMINAL PAIN/GI COMPARISON: CT abdomen and pelvis 11/13/2016. FINDINGS: The bowel gas pattern is non-obstructive. There is no organomegaly. Right-sided ureteral stent is in place without definite nephrolithiasis or ureteral calculi identified. No pneumoperitoneum or pneumatosis. No fracture. IMPRESSION: 1. Right ureteral stent without definite nephrolithiasis or ureteral calculi identified. 2. Nonobstructive bowel gas pattern. Electronically signed by: Luis F Hernandez M.D. 12/07/2017 1:17 PM Dictated Date/Time: 12/07/2017 1:16 PM
[2017-12-07] MEDS ORDERED: LEVOFLOXACIN 250 MG TAB PO STA (13:33)
--- NOTE | 2017-12-07 13:37 | DIAGNOSTIC IMAGING REPORT ---
ULTRASOUND KIDNEYS AND BLADDER CLINICAL HISTORY: Right flank pain. COMPARISON STUDY: Abdominal CT dated 11/13/2016. TECHNIQUE: Real-time, grayscale, and color flow sonography of the kidneys and bladder is performed. Images are reviewed in the transverse and longitudinal planes. FINDINGS: Kidneys: The kidneys are normal in size and echotexture. The right kidney measures 12.6 x 6.2 x 6.5 cm and the left kidney measures 12.0 x 5.8 x 5.5 cm. There is mild right-sided hydronephrosis, and a right ureteral stent is in place. No hydronephrosis is seen on the left. No shadowing renal calculi are identified. There is no sonographic evidence of contour deforming renal mass lesion. No perinephric fluid is identified. Bladder: The bladder is normal in appearance. A left ureteral jet was seen. The bladder contains the end of a right ureteral stent. Upper abdomen: Survey images of the liver show evidence of hepatomegaly and severe hepatic steatosis. IMPRESSION: 1. The kidneys are normal in size. No left-sided hydronephrosis is seen. 3. There is mild right hydronephrosis, and a right ureteral stent is in place. 3. The bladder is normal as visualized. 4. Hepatomegaly and severe hepatic steatosis. Electronically signed by: Cortez Tyson M.D. 12/07/2017 1:35 PM Dictated Date/Time: 12/07/2017 1:34 PM
[2017-12-07] MEDS ORDERED: OXYC1TAB3 PO (15:06)
[2017-12-07] MEDS ORDERED: LEVO-366 PO (15:06)
[2017-12-07 15:29] VITALS: BP 162/74; PULSE 101; O2SAT 98
== END 2017-12-07 15:29 | disposition home or self-care (01) ==
LOC: C.EDB 11:37 → C.EDC 15:29
DX: N20.0 Calculus of kidney (principal); N39.0 Urinary tract infection, site not specified; Z96.0 Presence of urogenital implants; Z87.891 Personal history of nicotine dependence; Z80.9 Family history of malignant neoplasm, unspecified; Z83.3 Family history of diabetes mellitus; Z82.49 Family history of ischemic heart disease and other diseases of the circulatory system

== ENCOUNTER 2018-01-04 11:38 | Emergency (ER) | payer OTHER ==
[~2018-01-04] VITALS: Ht 160 cm; Wt 127.0 kg
[~2018-01-04 11:38] MED LIST changes: +FLM4 PO; +LEVO-366 PO; -LVQ750 PO; -MDRDP21 PO; +OXYC1TAB3 PO; +ULT50 PO
[2018-01-04 11:39] VITALS: TEMP 36.8; Ht 160 cm; Wt 127.0 kg
[2018-01-04] MEDS ORDERED: KETOROLAC TROMETHAMINE 30 MG/ML VIAL IV STA (11:52)
[2018-01-04] MEDS ORDERED: ONDANSETRON INJ 2 MG/ML 2 ML VIAL IV STA (11:52)
[2018-01-04] MEDS ORDERED: SODIUM CHLORIDE 0.9% 1000ML 1,000 ML IV ONE (12:00)
--- NOTE | 2018-01-04 13:10 | DIAGNOSTIC IMAGING REPORT ---
KUB CLINICAL HISTORY: Left flank pain. Hematuria. FINDINGS: 2 AP supine abdominal radiographs are compared to study dated 12/07/2017 and correlated with abdominal CT dated 11/13/2016. The right ureteral stent has been removed from previous. There is no radiographic evidence of nephrolithiasis on today's examination. No calcifications project along the course of the ureters. No bowel obstruction is seen. The bony structures appear intact. IMPRESSION: There is no radiographic evidence of nephrolithiasis on today's examination. Electronically signed by: Cortez Tyson M.D. 01/04/2018 1:09 PM Dictated Date/Time: 01/04/2018 1:07 PM
--- NOTE | 2018-01-04 13:23 | DIAGNOSTIC IMAGING REPORT ---
RENAL ULTRASOUND HISTORY: Left flank pain. Hx stones COMPARISON: KUB 01/04/2018. Renal ultrasound 12/07/2017. FINDINGS: Right kidney: 11.9 cm. No hydronephrosis. Normal corticomedullary differentiation and cortical thickness. Left kidney: 12.0 cm. No hydronephrosis. Normal corticomedullary differentiation and cortical thickness. Bladder: No bladder wall thickening. The bilateral ureteral jets were identified. Miscellaneous: Hepatic steatosis. IMPRESSION: Normal renal ultrasound. Electronically signed by: Hans Houston M.D. 01/04/2018 1:22 PM Dictated Date/Time: 01/04/2018 1:21 PM
[2018-01-04 14:47] LABS: BASO % 0.2 %; EOS % 1.4 %; HEMATOCRIT 37.9 % (42-52); HEMOGLOBIN 13.3 g/dL (14.0-18.0); LYMPH ABS # 2.83 K/uL (1.2-3.4); MEAN CELL VOLUME 85.6 fL (80-100); MEAN CORPUSCULAR HGB CONC 35.1 g/dl (32-36); MEAN PLATELET VOLUME 10.5 fL (7.4-10.4); MONO % 7.9 %; NEUT % 61.2 %; NEUT ABS # 5.97 K/uL (1.4-6.5); PLATELET COUNT 286 K/uL (130-400); RED CELL DISTRIBUTION WIDTH CV 13.1 % (11.5-14.5); RED CELL DISTRIBUTION WIDTH SD 41.1 fL (36.4-46.3); WHITE BLOOD COUNT 9.76 K/uL (4.8-10.8)
[2018-01-04 14:48] LABS: BASO ABS # 0.02 K/uL (0-0.2); EOS ABS # 0.14 K/uL (0-0.5); IG# 0.03 K/uL (0.00-0.02); MONO ABS # 0.77 K/uL (0.11-0.59)
[2018-01-04 15:13] LABS: ALBUMIN 3.7 gm/dl (3.4-5.0); CALCIUM 8.9 mg/dl (8.5-10.1); CREATININE 0.8 mg/dl (0.60-1.40); POTASSIUM 3.5 mmol/L (3.5-5.1)
[2018-01-04 15:15] LABS: TOTAL PROTEIN 7.5 gm/dl (6.4-8.2)
[2018-01-04] MEDS ORDERED: DICL75TA2 PO (15:32)
[2018-01-04] MEDS ORDERED: ONDA4TAB10 SL (15:32)
[2018-01-04 15:55] VITALS: BP 150/87; PULSE 82; O2SAT 97
--- NOTE | 2018-01-04 17:43 | EMERGENCY ROOM VISIT NOTE ---
History First contact with patient: 11:46 Chief Complaint: KIDNEY STONE Stated Complaint: KIDNEY STONES History of Present Illness The patient is a 27 year old male who presents to the Emergency Room with complaints of left-sided flank pain radiating into his groin that started today. He states that he had one severe episode of discomfort that made him nauseated with one episode of emesis. He has a relatively recent history of ureteral calculi on the right and has been following with urology in [place]. He is currently on a job working here in [employer], prompting his presentation here. He states that he did have a stent placed and subsequently removed in the past 2 months. This feels similar to his previous stones. He has not had fever or chills. No chest pain, chest tightness, shortness of breath, or upper abdominal pain. His current pain is rated at 2/10 , but at its worst it was a 9/10. Review of Systems More than 10 systems were reviewed and otherwise negative with the exception of history of present illness. Past Medical/Surgical History Surgical Problems: (1) S/P tonsillectomy Family History Cancer Diabetes mellitus Heart disease Hypertension Lung disease Social History Smoking Status: Never Smoker Alcohol Use: none Marital Status: in relationship Housing Status: lives with significant other Occupation Status: employed Current/Historical Medications Scheduled Diclofenac Sodium (Voltaren), 75 MG PO BID Ondasetron Odt (Zofran Odt), 4 MG SL Q6H Physical Exam Vital Signs Date Time Temp Pulse Resp B/P (MAP) Pulse Ox O2 Delivery O2 Flow Rate FiO2 01/04/18 15:55 82 20 150/87 97 Room Air 01/04/18 12:26 84 20 151/90 97 Room Air 01/04/18 11:39 36.8 88 16 159/96 99 Physical Exam VITALS: Vitals are noted on the nurse's note and reviewed by myself. Vital signs stable. GENERAL: Well-developed, well-nourished, white male, who is in no acute distress and resting comfortably. Patient is cooperative with the examination. HEAD: Normocephalic atraumatic. NECK: Supple without nuchal rigidity. No lymphadenopathy. No thyromegaly. Cervical spine is nontender. HEART: Regular rate and rhythm without murmurs gallops or rubs. LUNGS: Clear to auscultation bilaterally without wheezes, rales or rhonchi. No retractions or accessory muscle use. ABDOMEN: Positive normal bowel sounds x 4. Soft, nontender, without masses or organomegaly. No guarding or rebound tenderness. No CVA tenderness Medical Decision & Procedures ER Provider Diagnostic Interpretation: KUB CLINICAL HISTORY: Left flank pain. Hematuria. FINDINGS: 2 AP supine abdominal radiographs are compared to study dated 12/07/2017 and correlated with abdominal CT dated 11/13/2016. The right ureteral stent has been removed from previous. There is no radiographic evidence of nephrolithiasis on today's examination. No calcifications project along the course of the ureters. No bowel obstruction is seen. The bony structures appear intact. IMPRESSION: There is no radiographic evidence of nephrolithiasis on today's examination RENAL ULTRASOUND HISTORY: Left flank pain. Hx stones COMPARISON: KUB 01/04/2018. Renal ultrasound 12/07/2017. FINDINGS: Right kidney: 11.9 cm. No hydronephrosis. Normal corticomedullary differentiation and cortical thickness. Left kidney: 12.0 cm. No hydronephrosis. Normal corticomedullary differentiation and cortical thickness. Bladder: No bladder wall thickening. The bilateral ureteral jets were identified. Miscellaneous: Hepatic steatosis. IMPRESSION: Normal renal ultrasound. Laboratory Results 01/04/18 14:21 Red Blood Count 4.43, Mean Corpuscular Volume 85.6, Mean Corpuscular Hemoglobin 30.0, Mean Corpuscular Hemoglobin Concent 35.1, Mean Platelet Volume 10.5, Neutrophils (%) (Auto) 61.2, Lymphocytes (%) (Auto) 29.0, Monocytes (%) (Auto) 7.9, Eosinophils (%) (Auto) 1.4, Basophils (%) (Auto) 0.2, Neutrophils # (Auto) 5.97, Lymphocytes # (Auto) 2.83, Monocytes # (Auto) 0.77, Eosinophils # (Auto) 0.14, Basophils # (Auto) 0.02 01/04/18 14:21 Test 01/04/18 12:15 01/04/18 14:21 Urine Color YELLOW Urine Appearance CLOUDY (CLEAR) Urine pH 5.5 (4.5-7.5) Urine Specific [place] 1.027 (1.000-1.030) Urine Protein NEG (NEG) Urine Glucose (UA) NEG (NEG) Urine Ketones NEG (NEG) Urine Occult Blood NEG (NEG) Urine Nitrite NEG (NEG) Urine Bilirubin NEG (NEG) Urine Urobilinogen NEG (NEG) Urine Leukocyte Esterase NEG (NEG) Urine WBC (Auto) 1-5 /hpf (0-5) Urine RBC (Auto) 0-4 /hpf (0-4) Urine Hyaline Casts (Auto) 1-5 /lpf (0-5) Urine Epithelial Cells (Auto) 20-30 /lpf (0-5) Urine Bacteria (Auto) NEG (NEG) Urine Crystals CALCIUM OXALATE (NONE White Blood Count 9.76 K/uL (4.8-10.8) Red Blood Count 4.43 M/uL (4.7-6.1) Hemoglobin 13.3 g/dL (14.0-18.0) Hematocrit 37.9 % (42-52) Mean Corpuscular Volume 85.6 fL (80-100) Mean Corpuscular Hemoglobin 30.0 pg (25-34) Mean Corpuscular Hemoglobin Concent 35.1 g/dl (32-36) Platelet Count 286 K/uL (130-400) Mean Platelet Volume 10.5 fL (7.4-10.4) Neutrophils (%) (Auto) 61.2 % Lymphocytes (%) (Auto) 29.0 % Monocytes (%) (Auto) 7.9 % Eosinophils (%) (Auto) 1.4 % Basophils (%) (Auto) 0.2 % Neutrophils # (Auto) 5.97 K/uL (1.4-6.5) Lymphocytes # (Auto) 2.83 K/uL (1.2-3.4) Monocytes # (Auto) 0.77 K/uL (0.11-0.59) Eosinophils # (Auto) 0.14 K/uL (0-0.5) Basophils # (Auto) 0.02 K/uL (0-0.2) RDW Standard Deviation 41.1 fL (36.4-46.3) RDW Coefficient of Variation 13.1 % (11.5-14.5) Immature Granulocyte % (Auto) 0.3 % Immature Granulocyte # (Auto) 0.03 K/uL (0.00-0.02) Anion Gap 9.0 mmol/L (3-11) Est Creatinine Clear Calc Drug Dose 166.6 ml/min Estimated GFR () 141.9 Estimated GFR (Non- 122.4 BUN/Creatinine Ratio 15.1 (10-20) Calcium Level 8.9 mg/dl (8.5-10.1) Total Bilirubin 0.5 mg/dl (0.2-1) Aspartate Amino Transf (AST/SGOT) 26 U/L (15-37) Alanine Aminotransferase (ALT/SGPT) 49 U/L (12-78) Alkaline Phosphatase 67 U/L (45-117) Total Protein 7.5 gm/dl (6.4-8.2) Albumin 3.7 gm/dl (3.4-5.0) Globulin 3.8 gm/dl (2.5-4.0) Albumin/Globulin Ratio 1.0 (0.9-2) Lipase 317 U/L (73-393) Medications Administered Medications (Trade) Dose Ordered Sig/Mavis Route Start Time Stop Time Status Last Admin Dose Admin Ketorolac Tromethamine (Toradol Inj) 30 mg NOW STAT IV 01/04/18 11:52 01/04/18 11:55 DC 01/04/18 12:33 30 MG Sodium Chloride 1,000 ml @ 999 mls/hr Q1H1M ONCE IV 01/04/18 12:00 01/04/18 13:00 DC 01/04/18 12:33 999 MLS/HR Ondansetron HCl (Zofran Inj) 4 mg NOW STAT IV 01/04/18 11:52 01/04/18 11:55 DC 01/04/18 12:34 4 MG ED Course Physical exam and history were performed. Nursing notes, EMR, and Medication List were personally reviewed. Patient appears to have a recent history of ureteral calculi on the right and is now complaining of similar pain on the left. The patient does not appear toxic on examination. IV access was established and labs are obtained. The patient was hydrated with normal saline and given IV Toradol and IV Zofran. He has had recent CT scans and I elected to perform KUB and ultrasound. Urine was collected. The patient's blood work is as above and was reviewed. He does not have a significantly elevated white blood cell count, gross anemia, bandemia, or significant electrolyte imbalance. Transaminases are not diagnostic. Urine is without obvious infection. He does seem to have some calcium oxalate and slight blood in the urine. KUB does not reveal obvious stone. Ultrasound was also without obvious stone. On reevaluation the patient continues to be very comfortable and certainly not in intractable pain. I discussed options of care with the patient, and favor that he may have passed a stone earlier today, or is possibly passing very microscopic stones. The patient will be given a short course of Toradol and Zofran. He is established with urology and should contact them for further management. The patient was pleased with this voiced understanding. He will be invited back to the ER with any new, worsening, or concerning symptoms. The chart was completed utilizing [employer] Speech Voice Recognition Software. Grammatical errors, random word insertions, pronoun errors, and incomplete sentences are an occasional consequence of this system due to software limitations, ambient noise, and hardware issues. Any formal questions or concerns about the content, text, or information contained within the body of this dictation should be directly addressed to the provider for clarification. . Medical Decision Differential diagnosis: Etiologies such as renal colic, appendicitis, diverticulitis, mesenteric ischemia, aortic pathology, infections, inflammatory bowel disease, PUD, biliary pathology, UTI, as well as others were entertained. Impression Primary Impression: Left flank pain Departure Information Dispostion Home / Self-Care Condition GOOD Prescriptions Diclofenac Sodium (VOLTAREN) 75 Mg Tab 75 MG PO BID for 10 Days, #20 TAB Prov: Quintin Montejo PA-C 01/04/18 Ondasetron Odt (ZOFRAN ODT) 4 Mg Tab 4 MG SL Q6H for Nausea, #10 TAB Prov: Quintin Montejo PA-C 01/04/18 Referrals Kevin Nicholas M.D. (PCP) Forms HOME CARE DOCUMENTATION FORM, IMPORTANT VISIT INFORMATION Patient Instructions My [facility] Additional Instructions You were seen and evaluated today on an emergency basis only. This is not a substitute for, or an effort to provide, complete comprehensive medical care. It is not possible to recognize and treat all injuries or illnesses in a single emergency department visit. For this reason it is recommended that you followup with your urologist by telephone to arrange a follow-up next week. Take diclofenac 75 mg twice daily with food. Zofran 4 mg ODT: Dissolve 1 tablet every 6 hrs as needed for nausea. You are welcome to return to the emergency department anytime with new, worsening, or concerning symptoms.
== END 2018-01-04 16:01 | disposition home or self-care (01) ==
LOC: C.EDB 11:39
DX: R10.9 Unspecified abdominal pain (principal); Z80.9 Family history of malignant neoplasm, unspecified; Z83.3 Family history of diabetes mellitus; Z82.49 Family history of ischemic heart disease and other diseases of the circulatory system; Z83.6 Family history of other diseases of the respiratory system

== ENCOUNTER 2018-03-04 12:54 | Emergency (ER) | payer OTHER ==
[~2018-03-04] VITALS: Ht 160 cm; Wt 129.3 kg
[~2018-03-04 12:54] MED LIST changes: -FLM4 PO; -LEVO-366 PO; +ONDA4TAB10 SL; -OXYC1TAB3 PO; -ULT50 PO
[2018-03-04 12:58] VITALS: TEMP 37; Ht 160 cm; Wt 129.3 kg
[2018-03-04] MEDS ORDERED: ASPIRIN 324 MG CHEW PO STA (13:15)
--- NOTE | 2018-03-04 13:28 | DIAGNOSTIC IMAGING REPORT ---
CHEST ONE VIEW PORTABLE CLINICAL HISTORY: Atypical chest pain COMPARISON STUDY: 08/11/2017 FINDINGS: The cardiac and mediastinal contours are normal. There is no evidence of focal pulmonary consolidation. There is no evidence of failure. No pleural effusions are visualized.[ IMPRESSION: No active disease in the chest. Electronically signed by: Bernabe Weldon M.D. 03/04/2018 1:27 PM Dictated Date/Time: 03/04/2018 1:26 PM
[2018-03-04 13:56] LABS: BASO % 0.3 %; BASO ABS # 0.03 K/uL (0-0.2); EOS % 1.7 %; EOS ABS # 0.19 K/uL (0-0.5); HEMATOCRIT 41.9 % (42-52); HEMOGLOBIN 14.7 g/dL (14.0-18.0); IG# 0.03 K/uL (0.00-0.02); LYMPH % 22.6 %; LYMPH ABS # 2.57 K/uL (1.2-3.4); MEAN CELL VOLUME 86.2 fL (80-100); MEAN CORPUSCULAR HEMOGLOBIN 30.2 pg (25-34); MEAN CORPUSCULAR HGB CONC 35.1 g/dl (32-36); MONO % 6.7 %; MONO ABS # 0.76 K/uL (0.11-0.59); NEUT % 68.4 %; NEUT ABS # 7.81 K/uL (1.4-6.5); PLATELET COUNT 292 K/uL (130-400); RED CELL DISTRIBUTION WIDTH CV 12.8 % (11.5-14.5); RED CELL DISTRIBUTION WIDTH SD 40.6 fL (36.4-46.3); WHITE BLOOD COUNT 11.39 K/uL (4.8-10.8)
[2018-03-04 14:15] LABS: BLOOD UREA NITROGEN 14 mg/dl (7-18); CALCIUM 9.6 mg/dl (8.5-10.1); CARBON DIOXIDE 30 mmol/L (21-32); CREATININE 1.13 mg/dl (0.60-1.40); GLUCOSE 97 mg/dl (70-99); POTASSIUM 3.5 mmol/L (3.5-5.1); SODIUM 138 mmol/L (136-145)
[2018-03-04] MEDS ORDERED: SODIUM CHLORIDE 0.9% 1000ML 1,000 ML IV STA (14:31)
[2018-03-04 17:03] VITALS: BP 140/87; PULSE 90; O2SAT 97
--- NOTE | 2018-03-04 18:03 | EMERGENCY ROOM VISIT NOTE ---
History Report prepared by Pedro: Elmer Aguiar Under the Supervision of: Dr. Be Adrian D.O. First contact with patient: 13:05 Chief Complaint: HYPERTENSION Stated Complaint: HIGH BLOOD PRESSURE, DR REFERRED History of Present Illness The patient is a 28 year old male who presents to the Emergency Room with complaints of intermittent left sided chest and shoulder pain that he has been experiencing for the past week. 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 The pain in the left shoulder feels like he is "being punched in the shoulder." There is associated numbness in the palmar aspect of his 4 fingers of the left hand, down to the wrist. The chest pain onsets with the pain in the shoulder. The patient also notes that he has been becoming unusually fatigued at work. He needs to sit down and take a rest after painting a room, which is very unusual for him. He denies any other headache, change in vision, fevers, shortness of breath, nausea , vomiting, diarrhea, pain with urination, and melena. The patient notes that all 4 of his grandparents of massive MIs. No pain with range of motion of left shoulder. Source of History: patient Onset: 1 week Position: chest, shoulder (left) Quality: other (Being punched in the shoulder) Timing: intermittent Associated Symptoms: + numbness (in the left fingers and wrist), No fevers, No nausea, No vomiting, No abdominal pain Review of Systems See HPI for pertinent positives & negatives. A total of 10 systems reviewed and were otherwise negative. Past Medical & Surgical Surgical Problems: (1) S/P tonsillectomy Family History Cancer Diabetes mellitus Heart disease Hypertension Lung disease Social History Smoking Status: Never Smoker Alcohol Use: none Marital Status: in relationship Housing Status: lives with significant other Occupation Status: employed Current/Historical Medications No Active Prescriptions or Reported Meds Allergies Coded Allergies: Erythromycin (Verified Allergy, Intermediate, SWELLING,HIVES, 03/04/18) Penicillins (Verified Allergy, Intermediate, SWELLING,HIVES, 03/04/18) Physical Exam Vital Signs Date Time Temp Pulse Resp B/P (MAP) Pulse Ox O2 Delivery O2 Flow Rate FiO2 03/04/18 17:03 90 16 140/87 97 03/04/18 16:37 99 18 140/87 96 Room Air 03/04/18 15:45 103 18 168/96 97 Room Air 03/04/18 12:58 37.0 117 18 168/88 98 Room Air Physical Exam GENERAL: Sitting up in bed, alert, well appearing, well nourished, no distress, non-toxic EYE EXAM: normal conjunctiva. OROPHARYNX: no exudate, no erythema, lips, buccal mucosa, and tongue normal and mucous membranes are moist NECK: supple, no nuchal rigidity, no adenopathy, non-tender LUNGS: Clear to auscultation. Normal chest wall mechanics HEART: no murmurs, S1 normal and S2 normal ABDOMEN: abdomen soft, non-tender, normo-active bowel sounds, no masses, no rebound or guarding. BACK: Back is symmetrical on inspection and there is no deformity, no midline tenderness, no CVA tenderness. SKIN: no rashes and no bruising UPPER EXTREMITIES: upper extremities are grossly normal. Flexion/extension of shoulders, elbows, wrists and grasps are 5/5 bilaterally. LOWER EXTREMITIES: No pitting edema. NEURO EXAM: Normal sensorium, cranial nerves II-XII grossly intact, normal speech, no gross weakness of arms, no gross weakness of legs. Medical Decision & Procedures ER Provider Diagnostic Interpretation: Radiology results as stated below per my review and the radiologist's interpretation: CHEST ONE VIEW PORTABLE CLINICAL HISTORY: Atypical chest pain COMPARISON STUDY: 08/11/2017 FINDINGS: The cardiac and mediastinal contours are normal. There is no evidence of focal pulmonary consolidation. There is no evidence of failure. No pleural effusions are visualized.[ IMPRESSION: No active disease in the chest. Electronically signed by: Bernabe Weldon M.D. 03/04/2018 1:27 PM Dictated Date/Time: 03/04/2018 1:26 PM Laboratory Results 03/04/18 13:34 Red Blood Count 4.86, Mean Corpuscular Volume 86.2, Mean Corpuscular Hemoglobin 30.2, Mean Corpuscular Hemoglobin Concent 35.1, Mean Platelet Volume 11.0, Neutrophils (%) (Auto) 68.4, Lymphocytes (%) (Auto) 22.6, Monocytes (%) (Auto) 6.7, Eosinophils (%) (Auto) 1.7, Basophils (%) (Auto) 0.3, Neutrophils # (Auto) 7.81, Lymphocytes # (Auto) 2.57, Monocytes # (Auto) 0.76, Eosinophils # (Auto) 0.19, Basophils # (Auto) 0.03 03/04/18 13:34 Test 03/04/18 13:34 03/04/18 15:08 White Blood Count 11.39 K/uL (4.8-10.8) Red Blood Count 4.86 M/uL (4.7-6.1) Hemoglobin 14.7 g/dL (14.0-18.0) Hematocrit 41.9 % (42-52) Mean Corpuscular Volume 86.2 fL (80-100) Mean Corpuscular Hemoglobin 30.2 pg (25-34) Mean Corpuscular Hemoglobin Concent 35.1 g/dl (32-36) Platelet Count 292 K/uL (130-400) Mean Platelet Volume 11.0 fL (7.4-10.4) Neutrophils (%) (Auto) 68.4 % Lymphocytes (%) (Auto) 22.6 % Monocytes (%) (Auto) 6.7 % Eosinophils (%) (Auto) 1.7 % Basophils (%) (Auto) 0.3 % Neutrophils # (Auto) 7.81 K/uL (1.4-6.5) Lymphocytes # (Auto) 2.57 K/uL (1.2-3.4) Monocytes # (Auto) 0.76 K/uL (0.11-0.59) Eosinophils # (Auto) 0.19 K/uL (0-0.5) Basophils # (Auto) 0.03 K/uL (0-0.2) RDW Standard Deviation 40.6 fL (36.4-46.3) RDW Coefficient of Variation 12.8 % (11.5-14.5) Immature Granulocyte % (Auto) 0.3 % Immature Granulocyte # (Auto) 0.03 K/uL (0.00-0.02) D-Dimer < 190 ug/L FEU (0-500) Anion Gap 5.0 mmol/L (3-11) Est Creatinine Clear Calc Drug Dose 118.2 ml/min Estimated GFR () 102.0 Estimated GFR (Non- 88.0 BUN/Creatinine Ratio 12.6 (10-20) Calcium Level 9.6 mg/dl (8.5-10.1) Troponin I < 0.015 ng/ml (0-0.045) Laboratory results per my review. Medications Administered Medications (Trade) Dose Ordered Sig/Mavis Route Start Time Stop Time Status Last Admin Dose Admin Aspirin (Aspirin Chew) 324 mg NOW STAT PO 03/04/18 13:15 03/04/18 13:16 DC 03/04/18 13:26 324 MG Sodium Chloride 1,000 ml @ 999 mls/hr Q1H1M STAT IV 03/04/18 14:31 03/04/18 15:31 DC 03/04/18 15:47 999 MLS/HR ECG Per My Interpretation Indication: chest pain Rate (beats per minute): 112 Rhythm: sinus tachycardia Findings: other (Normal axis, no PVCs) ED Course ED COURSE: Vital signs were reviewed and showed hypertensive and tachycardic vitals. The patients medical record was reviewed The above diagnostic studies were performed and reviewed. ED treatments and interventions as stated above. 1307: The patient was evaluated in room B5. A complete history and physical examination was performed. 1315: Ordered Aspirin 324 mg PO. 1431: Ordered Sodium Chloride 1000 mL @ 999 mL/hr IV. 1506: I updated the patient at this time. 1558: Upon reevaluation, the patient is resting in bed.I discussed my findings with the patient and he understands and agrees with the treatment plan. Based on the patients age, coexisting illnesses, exam and lab findings the decision to treat as an outpatient was made. The patient remained stable while under my care. The patient appeared well at the time of discharge. Medical Decision Differential diagnoses includes but is not limited to acute coronary syndrome, myocardial infarction, pericarditis, pulmonary embolus, aortic dissection, pneumonia, pneumothorax, musculoskeletal, shingles, esophageal. Patient is a 28-year-old male who presents the ER for left shoulder chest pain. He notes intermittently he will feel as though he got punched in the shoulder and radiates into his chest. He does have some paresthesias when this occurs in his hand. Currently he is completely neurologically intact. He has been having the symptoms for the past week. Today he had about 8 AM and has had no symptoms since then. CBC along with BMP was unremarkable. Troponins were negative 2. D-dimer was negative. Chest x-ray was unremarkable. He had full range of motion of his left shoulder. There is no tenderness upon palpation or movement. Did not obtain x-ray as it do not feel this beneficial. Patient was updated at bedside. He was given fluids and aspirin. He felt back to his baseline initially upon presentation. Was slightly tachycardic. Based on his presentation I do not believe this is cardiac. Patient was updated at bedside. There is no real radicular symptoms with the neck to suggest neck pain. I did not image the neck although this is a possibility. He is neurovascularly intact. He was discharged follow-up with PCP as an outpatient. Discussed with Pt concerning signs and symptoms to watch out for. Pt was instructed to follow up with their PCP and discussed with the patient their option to return to the ED at anytime for persistent or worsening symptoms. The appropriate anticipatory guidance and out-patient management, including indications for return to the emergency department, were explained at length to the patient and understood. Medication Reconcilliation Current Medication List: was personally reviewed by me Blood Pressure Screening Patient's blood pressure: Elevated blood pressure Impression Primary Impression: Chest pain Additional Impression: Shoulder pain, acute Scribe Attestation The scribe's documentation has been prepared under my direction and personally reviewed by me in its entirety. I confirm that the note above accurately reflects all work, treatment, procedures, and medical decision making performed by me. Departure Information Dispostion Home / Self-Care Prescriptions No Active Prescriptions or Reported Meds Referrals Kevin Nicholas M.D. (PCP) Forms HOME CARE DOCUMENTATION FORM, IMPORTANT VISIT INFORMATION, WORK / SCHOOL INSTRUCTIONS Patient Instructions My [facility] Additional Instructions Please follow up with your primary care doctor with in the next 24 hours. Any worsening of your symptoms, please return to the ED immediately. This includes any fevers greater than 100.4, worsening pain, chest pain, shortness breath, persistent nausea, vomiting, unable to eat or drink, or any other concerning signs or symptoms from your standpoint. Please take Tylenol or Motrin as needed for pain. Please follow-up with your primary care doctor within the next 24 hours. Problem Qualifiers Primary Impression: Chest pain Chest pain type: unspecified Qualified Codes: R07.9 - Chest pain, unspecified Additional Impression: Shoulder pain, acute Laterality: left Qualified Codes: M25.512 - Pain in left shoulder
== END 2018-03-04 17:05 | disposition home or self-care (01) ==
LOC: C.EDB 12:55
DX: R07.9 Chest pain, unspecified (principal); M25.512 Pain in left shoulder; R00.0 Tachycardia, unspecified; Z82.49 Family history of ischemic heart disease and other diseases of the circulatory system; Z88.0 Allergy status to penicillin; Z88.1 Allergy status to other antibiotic agents

== ENCOUNTER 2025-08-23 12:16 | Observation (INO) ==
[2025-08-23] MEDS: NITROGLYCERIN SL 0.4 MG/TAB TAB SL PRN (12:38)
[2025-08-23] MEDS: ASPIRIN CHEW 324 MG PO STA (12:38)
[2025-08-23 12:47] LABS: Hematocrit (blood only) 43.7 % (42.0-52.0); Hemoglobin 15.2 g/dl (14.0-18.0); Immature Granulocytes # (auto) 0.05 K/uL (0.01-0.20); Immature Granulocytes % (auto) 0.5 %; Mean Corpuscular Hemoglobin 31.2 pg (25.0-34.0); Mean Corpuscular Volume 89.7 fL (80.0-100.0); Platelet Count 299 K/uL (130-400); RDW Standard Deviation 39.6 fL (36.4-46.3); Red Blood Count 4.87 M/uL (4.70-6.10); White Blood Count 11.08 K/ul (4.8-10.8)
--- NOTE | 2025-08-23 12:58 | XRay Report ---
HISTORY: Chest pain TECHNIQUE: Portable AP radiograph of the chest. COMPARISON: Chest radiograph dated 06/25/2023. FINDINGS: campus monitor leads overlie the chest. No focal lung consolidation. No pneumothorax or pleural effusion. Normal heart size. Midline trachea. No acute osseous abnormality. The included upper abdomen is unremarkable. IMPRESSION: No acute cardiopulmonary findings. Electronically signed by Harrison Morales 08-23-2025 12:58 PM
--- NOTE | 2025-08-23 13:05 | Emergency Department Note ---
Impression & Plan Unstable angina, Hypertension ED Provider Note NAME: ROBB GONSALES AGE: 35 SEX: M : 1990 ARRIVES VIA: Walk-In INFORMANT: Patient, family ED PROVIDER(S): Eduardo Miguel DO CHIEF COMPLAINT: chest pain HPI: This is a 35-year-old male with the PMHx of hypertension, obesity and prior tobacco use disorder presenting to [facility] for further evaluation of chest pain. Patient is accompanied by his family members who provide additional history. Patient is reporting severe pressure-like sensation associated with mild dyspnea. Patient states this is on the left side of his chest. He does have the same sensation within his left upper extremity. Patient states this started on . He states it occurs at rest. 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 It initially began when he was in his machine. Patient states he smoked a number years ago. He reports significant family history of coronary artery disease (early onset 40-50s). They deny fever or chills. No cough or congestion. They deny abdominal pain, nausea and vomiting. No urinary complaints. No recent changes in bowel movements. Patient denies recent changes in medications or OTC supplements. Patient offers no other complaints, today. ADDITIONAL HISTORY OBTAINED: Per HPI Chronic Medical/Social Conditions Affecting Care: Per HPI PAST MEDICAL HISTORY: See Below PAST SURGICAL HISTORY: See Below FAMILY HISTORY: See Below SOCIAL HISTORY: See Below HOME MEDICATIONS: See Below ALLERGIES: See Below VITALS: See Below PHYSICAL EXAMINATION: GENERAL: Sitting up in bed, alert, well appearing, well nourished, no distress, non-toxic, obese EYE EXAM: normal conjunctiva. OROPHARYNX: no exudate, no erythema, lips, buccal mucosa, and tongue normal and mucous membranes are moist NECK: supple, no nuchal rigidity, no adenopathy, non-tender LUNGS: Clear to auscultation. Normal chest wall mechanics HEART: no murmurs, regular rate, regular rhythm, 2+ distal pulses, warm and well perfused ABDOMEN: abdomen soft, non-tender, no masses, no rebound or guarding. BACK: Back is symmetrical on inspection and there is no deformity, no midline tenderness, no CVA tenderness. SKIN: no rashes and no bruising UPPER EXTREMITIES: upper extremities are grossly normal. LOWER EXTREMITIES: No pitting edema. NEURO EXAM: Normal sensorium, GCS 15, normal speech, no gross weakness of arms, no gross weakness of legs. MEDICAL DECISION MAKING: Differential diagnoses includes but not limited to ACS, stable vs unstable angina, dysrhythmia, viral URI, pneumonia, pericarditis, pneumothorax, costochondritis, MSK strain, PE, hypertensive emergency, psychological causes, esophageal reflux, gastritis In summary, this is a 35 year old male who presented with chest pain. Differential as above. Nursing notes and pertinent past medical records reviewed. Vital signs reviewed and the patient is severely hypertensive but otherwise afebrile and hemodynamically stable. History and presentation revealed onset of chest pain was on . Worsens with exertion. Significant pressure within the left chest and to the left upper extremity. Symptoms are concerning for angina. Do believe this would be unstable angina given that the patient's symptoms are occurring at rest. He has multiple risk factors for ACS including obesity, prior tobacco use disorder, hypertension and significant family history. Physical examination revealed as above. As a result of my initial evaluation, we will plan for serial troponins and EKG as needed. Plan for load of aspirin as well as sublingual nitroglycerin. While PE and aortic dissection are considerations I feel this is less likely. I am concerned that the patient symptoms are consistent with ischemic disease. Diagnostics interpreted by me include EKG and cardiac monitoring as listed below: -Cardiac Monitoring: An order was placed for continuous cardiac monitoring. The monitor shows a rate of 70-90s with regular rhythm. -ECG: Normal sinus rhythm at a ventricular rate of [address] segment changes to suggest STEMI. Intervals are within normal limits. Patient completed laboratory studies and imaging. I-STAT chemistries were obtained on arrival showing no significant electrolyte derangements or kidney dysfunction. Results independently interpreted by me are Minimal leukocytosis. No significant electrolyte derangements. Normal kidney function. LFTs and lipase are normal. Troponin stable. CXR independently interpreted by me reveals no evidence of focal consolidation to suggest pna. No large pneumothorax or pleural effusion. No obvious displaced rib fracture. The patient was managed with loading dose of aspirin as well as sublingual nitroglycerin. The patient received 1 sublingual nitroglycerin and his pain significantly improved. Patient's systolic blood pressures also did downtrend from the 190s to the 170s. I do feel this patient is moderate risk for ACS. He has family history, obesity and hypertension. His symptoms are concerning for unstable angina. I do feel would be reasonable to observe this patient in the hospital with telemetry and likely stress test. [facility] cardiology was paged at [phone] and I spoke with Dr. Amador at [phone]. Dr. Amador did not state that he felt the patient required inpatient admission but would be willing to see the patient if consulted as an inpatient. Cardiology did feel that the patient could be discharged with outpatient follow-up. Patient had recurrence of chest pain while in the emergency department. He was given further sublingual nitroglycerin with again improvement in his symptoms. I offered the patient outpatient follow-up with cardiology versus inpatient management for close monitoring, blood pressure control and possible further workup with a stress test. Patient prefers to be admitted at this time. Ultimately, the decision was made to admit the patient for unstable angina with poorly controlled hypertension. I discussed the case with the hospitalist service via telephone/Tiger[employer] and they are agreeable to admit the patient to their services. Patient was discussed further with [facility] hospitalist team, Dr. Moreno. He is concerned for possible aortic dissection. I agree with workup further by CTA imaging. CTA imaging reviewed by me showed no acute aortic dissection. Based on the above, including the patient's age, coexisting illnesses, labs, imaging, and exam findings the decision to treat as an inpatient. I discussed the patient with the hospitalist team who recommended admission to their services. They received the medications, treatments, interventions indicated above and their condition remained guarded. I discussed my findings with the patient and their family and they understand and agree with the treatment plan. All patient / family questions were answered to their satisfaction. Consults/Care Managements Discussions: Per [facility] ER treatment provided: See above Procedures:none Critical Care: None The chart was completed utilizing [employer] Speech voice recognition software. Grammatical errors, random word insertions, pronoun errors, and incomplete sentences are an occasional consequence of this system due to software limitations, ambient noise, and hardware issues. Any formal questions or concerns about the content, text, or information contained within the body of this dictation should be directly addressed to the physician for clarification. Past Med/Surg History Problem List (Updated 08/23/25 @ 17:10 by Eduardo Miguel DO) Hypertension (Acute) Unstable angina (Acute) HTN (hypertension) (Chronic) Kidney stone (Acute) Medical History Sarcoidosis Surgical History History of cystoscopy History of appendectomy S/P tonsillectomy Family History Other Cancer Heart disease Hypertension Multiple sclerosis Myocardial infarction Social History Smoking Status: Never smoker Preferred Language: Kenyan marital status: single current occupational status: employed Feels Safe at Home: Yes Allergies Allergies Allergy/AdvReac Type Severity Reaction Status Date / Time erythromycin base Allergy Intermediate SWELLING,HI Verified 05/02/21 14:16 VES Penicillins Allergy Intermediate SWELLING,HI Verified 05/02/21 14:16 VES Home Meds Home Medications Medication Instructions Recorded Confirmed acetaminophen 325 mg tablet 325 mg PO QID PRN fever/pain 05/02/21 08/23/25 (Tylenol) Previous Rx's Medication Instructions Recorded ibuprofen 800 mg tablet 800 mg PO Q8H PRN pain #60 tabs 05/02/21 Results & Data (ED) Vital Signs Vital Signs - 24 hr 08/23/25 12:21 08/23/25 12:33 08/23/25 12:45 Temperature 36.6 C Temperature Source Temporal Artery Scan Pulse Rate 88 Pulse Rate [Apical] Pulse Rate from SpO2 Sensor Pulse Rhythm Pulse Rhythm [Apical] Pulse Strength [Apical] Respiratory Rate 18 Respiratory Effort / Characteristics Non-Labored Spontaneous Respiratory Depth Normal Blood Pressure 199/98 H 193/90 H 173/86 H Blood Pressure [Right Arm] Blood Pressure Mean 131 119 133 Blood Pressure Mean [Right Arm] Blood Pressure Position Sitting Blood Pressure Position [Right Arm] Pulse Oximetry 100 Oxygen Delivery Method Room Air Sepsis Recent Fever Within 48 Hours No Sepsis New/Unexplained Change in Mental Status No Sepsis Action Taken by Nursing No Action Required 08/23/25 12:46 08/23/25 13:20 08/23/25 13:27 Temperature Temperature Source Pulse Rate 88 79 76 Pulse Rate [Apical] Pulse Rate from SpO2 Sensor 76 Pulse Rhythm Regular Pulse Rhythm [Apical] Pulse Strength [Apical] Respiratory Rate 20 14 Respiratory Effort / Characteristics Respiratory Depth Blood Pressure Blood Pressure [Right Arm] Blood Pressure Mean Blood Pressure Mean [Right Arm] Blood Pressure Position Blood Pressure Position [Right Arm] Pulse Oximetry 98 95 Oxygen Delivery Method Room Air Sepsis Recent Fever Within 48 Hours Sepsis New/Unexplained Change in Mental Status Sepsis Action Taken by Nursing 08/23/25 13:45 08/23/25 13:57 08/23/25 14:16 Temperature Temperature Source Pulse Rate 80 79 Pulse Rate [Apical] 84 Pulse Rate from SpO2 Sensor 82 79 Pulse Rhythm Pulse Rhythm [Apical] Regular Pulse Strength [Apical] Normal Respiratory Rate 18 24 17 Respiratory Effort / Characteristics Non-Labored Spontaneous Respiratory Depth Normal Blood Pressure Blood Pressure [Right Arm] 160/95 H Blood Pressure Mean Blood Pressure Mean [Right Arm] 116 Blood Pressure Position Blood Pressure Position [Right Arm] Sitting Pulse Oximetry 97 96 93 Oxygen Delivery Method Room Air Sepsis Recent Fever Within 48 Hours Sepsis New/Unexplained Change in Mental Status Sepsis Action Taken by Nursing 08/23/25 14:17 08/23/25 14:27 08/23/25 14:30 Temperature Temperature Source Pulse Rate 89 72 Pulse Rate [Apical] Pulse Rate from SpO2 Sensor 89 Pulse Rhythm Pulse Rhythm [Apical] Pulse Strength [Apical] Respiratory Rate 23 13 Respiratory Effort / Characteristics Respiratory Depth Blood Pressure 160/95 H Blood Pressure [Right Arm] Blood Pressure Mean 126 Blood Pressure Mean [Right Arm] Blood Pressure Position Blood Pressure Position [Right Arm] Pulse Oximetry 94 98 Oxygen Delivery Method Sepsis Recent Fever Within 48 Hours Sepsis New/Unexplained Change in Mental Status Sepsis Action Taken by Nursing 08/23/25 14:36 08/23/25 14:45 08/23/25 15:03 Temperature Temperature Source Pulse Rate 82 86 90 Pulse Rate [Apical] Pulse Rate from SpO2 Sensor 84 83 90 Pulse Rhythm Pulse Rhythm [Apical] Pulse Strength [Apical] Respiratory Rate 29 H 14 15 Respiratory Effort / Characteristics Respiratory Depth Blood Pressure Blood Pressure [Right Arm] Blood Pressure Mean Blood Pressure Mean [Right Arm] Blood Pressure Position Blood Pressure Position [Right Arm] Pulse Oximetry 94 97 97 Oxygen Delivery Method Sepsis Recent Fever Within 48 Hours Sepsis New/Unexplained Change in Mental Status Sepsis Action Taken by Nursing 08/23/25 15:39 08/23/25 15:45 08/23/25 15:57 Temperature Temperature Source Pulse Rate 86 75 78 Pulse Rate [Apical] Pulse Rate from SpO2 Sensor 81 76 Pulse Rhythm Pulse Rhythm [Apical] Pulse Strength [Apical] Respiratory Rate 25 H 23 20 Respiratory Effort / Characteristics Respiratory Depth Blood Pressure Blood Pressure [Right Arm] Blood Pressure Mean Blood Pressure Mean [Right Arm] Blood Pressure Position Blood Pressure Position [Right Arm] Pulse Oximetry 96 96 Oxygen Delivery Method Sepsis Recent Fever Within 48 Hours Sepsis New/Unexplained Change in Mental Status Sepsis Action Taken by Nursing 08/23/25 16:03 08/23/25 16:06 08/23/25 16:13 Temperature Temperature Source Pulse Rate 73 79 Pulse Rate [Apical] Pulse Rate from SpO2 Sensor 74 79 Pulse Rhythm Pulse Rhythm [Apical] Pulse Strength [Apical] Respiratory Rate 28 H 24 Respiratory Effort / Characteristics Respiratory Depth Blood Pressure 161/103 H Blood Pressure [Right Arm] Blood Pressure Mean 122 Blood Pressure Mean [Right Arm] Blood Pressure Position Blood Pressure Position [Right Arm] Pulse Oximetry 96 94 Oxygen Delivery Method Sepsis Recent Fever Within 48 Hours Sepsis New/Unexplained Change in Mental Status Sepsis Action Taken by Nursing 08/23/25 16:13 08/23/25 16:18 08/23/25 16:21 Temperature Temperature Source Pulse Rate 80 74 Pulse Rate [Apical] Pulse Rate from SpO2 Sensor 80 75 Pulse Rhythm Pulse Rhythm [Apical] Pulse Strength [Apical] Respiratory Rate 18 20 Respiratory Effort / Characteristics Respiratory Depth Blood Pressure 161/103 H Blood Pressure [Right Arm] Blood Pressure Mean 122 Blood Pressure Mean [Right Arm] Blood Pressure Position Blood Pressure Position [Right Arm] Pulse Oximetry 97 96 Oxygen Delivery Method Sepsis Recent Fever Within 48 Hours Sepsis New/Unexplained Change in Mental Status Sepsis Action Taken by Nursing Laboratory Data 08/23/25 12:33 08/23/25 12:33 Lab Results 08/23/25 08/23/25 08/23/25 Range/Units 12:33 12:38 15:30 WBC 11.08 H (4.8-10.8) K/ul RBC 4.87 (4.70-6.10) M/uL Hgb 15.2 (14.0-18.0) g/dl POC Hgb 15.6 (14.0-18.0) g/dl Hct 43.7 (42.0-52.0) % POC Hct 46 (42-52) % MCV 89.7 (80.0-100.0) fL MCH 31.2 (25.0-34.0) pg MCHC 34.8 (32.0-36.0) g/dL RDW Std Deviation 39.6 (36.4-46.3) fL RDW Coeff of Tho 12.1 (11.5-14.5) % Plt Count 299 (130-400) K/uL MPV 11.4 (9.4-12.4) fL Immature Gran % (Auto) 0.5 % Neut % (Auto) 51.2 % Lymph % (Auto) 34.6 % Harvey % (Auto) 9.9 % Eos % (Auto) 3.2 % Baso % (Auto) 0.6 % Neut # (Auto) 5.67 (1.40-6.50) K/uL Lymph # (Auto) 3.83 H (1.20-3.40) K/uL Harvey # (Auto) 1.10 H (0.11-0.59) K/uL Eos # (Auto) 0.36 (0.00-0.50) K/uL Baso # (Auto) 0.07 (0.00-0.20) K/uL Immature Gran # (Auto) 0.05 (0.01-0.20) K/uL POC Sodium 140 (135-144) mmol/L Sodium 139 (136-145) mmol/L POC Potassium 3.5 (3.3-5.0) mmol/L Potassium 3.5 (3.5-5.1) mmol/L POC Chloride 98 L (101-112) mmol/L Chloride 100 (98-107) mmol/L Carbon Dioxide 32 (21-32) mmol/L POC Total CO2 28 (24-31) mmol/L Anion Gap 7 (3-11) POC Anion Gap 19.0 (16-25) mmol/L POC BUN 14 (7-18) mg/dl BUN 14 (6-23) mg/dl Creatinine 1.16 (0.6-1.4) mg/dl POC Creatinine 1.3 (0.6-1.3) mg/dl Est Cr Clr Drug Dosing 108.0 ml/min eGFR 84.24 BUN/Creatinine Ratio 12.1 (10-20) Glucose 76 (70-99(Fasting)) mg/dl POC Glucose (other) 78 (70-99) mg/dl Calcium 9.8 (8.6-10.3) mg/dl POC Ioniz Calcium Cedric 1.24 (1.12-1.32) mmol/l Total Bilirubin 0.4 (0.2-1.0) mg/dl AST 23 (13-39) U/L ALT 36 (7-52) U/L Alkaline Phosphatase 68 (34-104) U/L Troponin I High Sens 4.0 (0-20) pg/ml Total Protein 8.0 (6.0-8.3) gm/dl Albumin 4.1 (3.4-5.0) gm/dl Globulin 3.9 (2.5-4.0) gm/dl Albumin/Globulin Ratio 1.1 (0.9-2) Lipase 22 (11-82) U/L Urine Color Yellow Urine Appearance Cloudy A (Clear) Urine pH 7.0 (4.5-7.5) Ur Specific [place] 1.017 (1.000-1.030) Urine Protein Negative (Negative) Urine Glucose (UA) Negative (Negative) Urine Ketones Negative (Negative) Urine Blood Negative (Negative) Urine Nitrite Negative (Negative) Urine Bilirubin Negative (Negative) Urine Urobilinogen Negative (Negative) Ur Leukocyte Esterase 1+ H (Negative) Urine WBC (Auto) 21-50 H (0-5) /hpf Urine RBC (Auto) 0-2 (0-2) /hpf U Hyaline Cast (Auto) 0-2 (0-2) /lpf U Epithel Cells (Auto) 0-2 (0-2) /hpf Urine Bacteria (Auto) None Seen (None Seen) Urine Comment 08/23/25 Range/Units 15:43 WBC (4.8-10.8) K/ul RBC (4.70-6.10) M/uL Hgb (14.0-18.0) g/dl POC Hgb (14.0-18.0) g/dl Hct (42.0-52.0) % POC Hct (42-52) % MCV (80.0-100.0) fL MCH (25.0-34.0) pg MCHC (32.0-36.0) g/dL RDW Std Deviation (36.4-46.3) fL RDW Coeff of Tho (11.5-14.5) % Plt Count (130-400) K/uL MPV (9.4-12.4) fL Immature Gran % (Auto) % Neut % (Auto) % Lymph % (Auto) % Harvey % (Auto) % Eos % (Auto) % Baso % (Auto) % Neut # (Auto) (1.40-6.50) K/uL Lymph # (Auto) (1.20-3.40) K/uL Harvey # (Auto) (0.11-0.59) K/uL Eos # (Auto) (0.00-0.50) K/uL Baso # (Auto) (0.00-0.20) K/uL Immature Gran # (Auto) (0.01-0.20) K/uL POC Sodium (135-144) mmol/L Sodium (136-145) mmol/L POC Potassium (3.3-5.0) mmol/L Potassium (3.5-5.1) mmol/L POC Chloride (101-112) mmol/L Chloride (98-107) mmol/L Carbon Dioxide (21-32) mmol/L POC Total CO2 (24-31) mmol/L Anion Gap (3-11) POC Anion Gap (16-25) mmol/L POC BUN (7-18) mg/dl BUN (6-23) mg/dl Creatinine (0.6-1.4) mg/dl POC Creatinine (0.6-1.3) mg/dl Est Cr Clr Drug Dosing ml/min eGFR BUN/Creatinine Ratio (10-20) Glucose (70-99(Fasting)) mg/dl POC Glucose (other) (70-99) mg/dl Calcium (8.6-10.3) mg/dl POC Ioniz Calcium Cedric (1.12-1.32) mmol/l Total Bilirubin (0.2-1.0) mg/dl AST (13-39) U/L ALT (7-52) U/L Alkaline Phosphatase (34-104) U/L Troponin I High Sens 4.3 (0-20) pg/ml Total Protein (6.0-8.3) gm/dl Albumin (3.4-5.0) gm/dl Globulin (2.5-4.0) gm/dl Albumin/Globulin Ratio (0.9-2) Lipase (11-82) U/L Urine Color Urine Appearance (Clear) Urine pH (4.5-7.5) Ur Specific [place] (1.000-1.030) Urine Protein (Negative) Urine Glucose (UA) (Negative) Urine Ketones (Negative) Urine Blood (Negative) Urine Nitrite (Negative) Urine Bilirubin (Negative) Urine Urobilinogen (Negative) Ur Leukocyte Esterase (Negative) Urine WBC (Auto) (0-5) /hpf Urine RBC (Auto) (0-2) /hpf U Hyaline Cast (Auto) (0-2) /lpf U Epithel Cells (Auto) (0-2) /hpf Urine Bacteria (Auto) (None Seen) Urine Comment Administered Medications Nitroglycerin (Nitroglycerin Sl 0.4 Mg/Tab Tab) 0.4 mg SL Q5M PRN PRN Reason: Chest Pain Stop: 09/22/25 12:29 Last Admin: 08/23/25 14:17 Dose: 0.4 mg Documented By: Admin: 08/23/25 12:38 Dose: 0.4 mg Documented By: [email or web address] Nitroglycerin (Nitroglycerin 2% Ointment 30gm Tube) 0.5 inch EXT Q6H ARMANDO Stop: 09/22/25 14:44 Last Admin: 08/23/25 15:33 Dose: 0.5 inch Documented By: YAO Discontinued Medications Aspirin (Aspirin Chew 324 Mg) 324 mg PO NOW STA Stop: 08/23/25 12:26 Last Admin: 08/23/25 12:38 Dose: 324 mg Documented By: varghese Heparin Sodium (Porcine) (Heparin Sod (Porcine) 1000 Unit/Ml) Confirm Administered Dose 1,000 units .ROUTE .STK-MED ONE Stop: 08/23/25 16:41 Last Admin: 08/23/25 16:53 Dose: Not Given Documented By: YAO Heparin Sodium/Dextrose (Heparin 36779 Unit/500 Ml D5w) Confirm Administered Dose 25,000 units IV .STK-MED ONE Stop: 08/23/25 16:41 Last Admin: 08/23/25 16:53 Dose: Not Given Documented By: YAO Ioversol (Optiray 320 125ml) 115 ml IV ONCE ONE Stop: 08/23/25 15:13 Last Admin: 08/23/25 15:12 Dose: 115 ml Documented By: KACI Metoprolol Tartrate (Metoprolol Tartrate 25 Mg Tab) 12.5 mg PO ONE ONE Stop: 08/23/25 14:46 Last Admin: 08/23/25 15:33 Dose: 12.5 mg Documented By: YAO Nitroglycerin (Nitroglycerin 2% Ointment 30gm Tube) 1 inch EXT Q6H ARMANDO Stop: 09/22/25 14:44 Last Admin: 08/23/25 15:26 Dose: Not Given Documented By: YAO Imaging Data Radiologist's Impression: Chest X-Ray 08/23/25 12:25 HISTORY: Chest pain TECHNIQUE: Portable AP radiograph of the chest. COMPARISON: Chest radiograph dated 06/25/2023. FINDINGS: monitoring manager leads overlie the chest. No focal lung consolidation. No pneumothorax or pleural effusion. Normal heart size. Midline trachea. No acute osseous abnormality. The included upper abdomen is unremarkable. IMPRESSION: No acute cardiopulmonary findings. Electronically signed by Harrison Morales 08-23-2025 12:58 PM Chest CTA 08/23/25 14:53 EXAM: CT Angiography Chest Without and With Intravenous Contrast INDICATION: Recent sharp left chest pain radiating to the left arm. Constant pressure. TECHNIQUE: Axial computed tomographic angiography images of the chest without and with intravenous contrast. Sagittal and coronal reformatted images were created and reviewed. This CT exam was performed using one or more of the following dose reduction techniques: automated exposure control, adjustment of the mA and/or kV according to patient size, and/or use of iterative reconstruction technique. MIP reconstructed images were created and reviewed. CONTRAST: 115 ml of Optiray 320 was administered intravenously. COMPARISON: 12/13/2020 FINDINGS: Pulmonary arteries: No abnormality noted. No pulmonary embolism. Aorta: No acute change noted. No thoracic aortic aneurysm or dissection. Lungs and pleural spaces: No abnormality noted. No mass. No consolidation. No significant effusion. No pneumothorax. Heart: No abnormality noted. No cardiomegaly. No significant pericardial effusion. No evidence of RV dysfunction. Bones/joints: No acute or atypical chronic changes. Soft tissues: No abnormality noted. Lymph nodes: No abnormality noted. No enlarged lymph nodes. Liver: Stable large fatty liver. IMPRESSION: 1. No aortic aneurysm, dissection or pulmonary embolus. 2. Large fatty liver. ACT 112: N/A Electronically signed by Dilma Hendrickson 08-23-2025 4:24 PM Discharge Plan Visit Data Chief Complaint: Chest Pain Stated Complaint: CHEST PAIN ED Provider: Eduardo Miguel Discharge Problem: Unstable angina, Hypertension Patient Disposition: Admitted As Inpatient Condition: Serious Forms Stand Alone Forms: Instructure Prescriptions Prescriptions: No Action acetaminophen [Tylenol] 325 mg Tablet 325 mg PO QID PRN (Reason: fever/pain) ibuprofen 800 mg tablet 800 mg PO Q8H PRN (Reason: pain) Qty: 60 0RF Referrals Referrals: Hola Pereyra MD [Physician] - (chest pain followup) Cole Puente MD [Physician] - (Refer for Sleep Study. STOP-BANG 7.) Harman Jordan DO [Physician] - ()
[2025-08-23 13:06] LABS: Alanine Aminotransferase 36.0 U/L (7-52); Albumin Globulin Ratio 1.1 (0.9-2); Albumin Level 4.1 gm/dl (3.4-5.0); Alkaline Phosphatase 68.0 U/L (34-104); Anion Gap 7.0 (3-11); Bilirubin,Total 0.4 mg/dl (0.2-1.0); Blood Urea Nitrogen 14.0 mg/dl (6-23); Calcium 9.8 mg/dl (8.6-10.3); Carbon Dioxide 32.0 mmol/L (21-32); Chloride 100.0 mmol/L (98-107); Creatinine Clr Calc Pharmacy 108.0 ml/min; Globulin 3.9 gm/dl (2.5-4.0); Glucose 76.0 mg/dl (70-99(Fasting)); Lipase 22.0 U/L (11-82); Potassium 3.5 mmol/L (3.5-5.1); Sodium 139.0 mmol/L (136-145); Total Protein 8.0 gm/dl (6.0-8.3)
--- NOTE | 2025-08-23 14:09 | Electrocardiogram Report ---
Test Reason : Blood Pressure : */* mmHG Vent. Rate : 84 BPM Atrial Rate : 84 BPM P-R Int : 122 ms QRS Dur : 88 ms QT Int : 372 ms P-R-T Axes : 24 -4 28 degrees QTcB Int : 439 ms Normal sinus rhythm Normal ECG When compared with ECG of 25-Jun-2023 13:15, No significant change was found Confirmed by Leighton Amador ([id number]) on 08/23/2025 2:09:11 PM Referred By: Confirmed By: Leighton Amador
[2025-08-23] MEDS ORDERED: POLYETHYLENE (MIRALAX) 17 GM PACK PO PRN (14:28)
[2025-08-23] MEDS ORDERED: MELATONIN 3 MG TAB PO PRN (14:28)
[2025-08-23] MEDS ORDERED: ONDANSETRON INJ 2 MG/ML 2 ML VIAL IV PRN (14:28)
--- NOTE | 2025-08-23 14:39 | History & Physical Report ---
Date of Service August 23, 2025 Assessment & Plan (1) Chest pain: Plan: Chest pain at rest, worsens with exertion Differential includes symptomatic hypertension, unstable angina, lower suspicion for dissection Given some pain radiating into his back and acute on chronic hypertension CT obtained to rule out dissection --> CTA-chest: No evidence of dissection Multiple family members with heart attacks at a young age. He has a BMI of 50, and uses tobacco products. EKGs without ischemic changes on admission and troponin is negative. Slightly reassuring that despite pain over 4 days he has a negative troponin; however recurrent chest pain at rest which has been quickly recurrent and exacerbated with any exertion and associated with left arm discomfort, sweating, and dyspnea is concerning for unstable angina. Pain is resolved consistently with sublingual nitro, required redosing while in the ER. Heart score moderate risk. Treadmill stress test ordered for 08/24. Metoprolol 12.5 mg tartrate started and continued twice daily. Titrate as tolerated. Nitropaste added - Nitro SL PRN for recurrent pain Labetalol on-call if needed for acute blood pressure reduction - Heparin GTT ordered due to story consistent with unstable angina and recurrent pain while in the ER. - Exercise stress test pending - A1C/Lipids pending - ASA continued - Statin pending further eval, lipids pending Hypertension Chronic untreated hypertension, although worse than typical and in the 200s on admission - No evidence of dissection on CTA Improved with nitro Metoprolol x 1 given Started on Nitropaste Labetalol on-call for BP greater than 180/100 Suspected MELQUIADES - Neck Circumference: 55cm at time of admit - Bicarb 32 on admit. - STOP-BANG score 7 points. - High risk for and almost certainly has sleep apnea contributing to his worsening hypertension, and w/ symptomatic daytime sleepiness - Will trial CPAP while inpt - Recommend formal outpt sleep study to qualify for home CPAP on discharge DVT PPx: Heparin gtt Diet: HH, NPO at 0000 Dispo: PCU Code Status: Full Code History of Present Illness Primary Care Provider: AYESHA PCP 35yo M with hx of BMI 50.5, tobacco abuse, early family history of GA, who presents with recurrent chest pain worsened with exertion which has occurred at rest the past 3 days which resolved immediately upon receiving sublingual nitro but which subsequently occurred in the emergency department and again resolved following nitro and blood pressure control. DDx includes symptomatic hypertension and unstable angina. He does not have territorial ST elevations or T wave changes on admitting EKG. Per Sign out: chest pain on at rest worsening on exertion with radiation into LUE and dyspnea. Recurrent chest pain today. Intermittent over the morning Systolic 200s. 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 SHort of breath and slightly sweaty with the episode. Since then Initial stabbing pain faded, but has the feeling 'of a lead vest sitting on my chest' intermittently since then. Has not copmletely gone away, much generally minimal and 1/10 in intensity but If he exerts himself at all or walks any meaningful distance the discomfort immediately comes back and he breaks out in cold sweats. Most concerning symptom is the chest heaviness. Had a low grade mild ache since , but then finally improved after taking nitro in the ER. REcurred while in the ER, then completely resolved again. Has never had chest pain like this before Pain in his chest goes a little bit into his back and then down his arm heaviness/discomfort did not completely resolve at home and was a ~1/10 until he received nitro. He had been diagnosed with high blood pressure in the past however much higher currently than it usually is. 0.5 of snuff tobacco per day. No cigarettes ETOH on sunday nights. ~6 beers on a Sunday. 6 throughout the weekend for total of 12 over the weekend. NO shakes/withdrawal through the week 4-5 days without ETOH STOPBANG 7. Male. Neck circumference measured at 55cm. +snoring, +daytime sleepiness, +periods of apnea per family, +HTN, BMI 50.5, Age <50, Male gender Mother: 2 GA, 3 stents. Multiple GA in her 40s, was a heavy smoker. MGM/MGF: MIs in 50s. Father: Unsure of history, is incarcerated. PGF with GA in 60s. NO history of strokes no hx of DM Not sure about history of HLD Pt is not sure if he has high lipids, thinks he was tested many years ago Medical History: Reviewed Medications: Reviewed Surgical History: Reviewed Family history: Reviewed Allergies: Reviewed. Allergic to PCN, erythromycin. Has had contrast dye without allergic rxn in the past Social History: As noted Code Status: Full Code Allergies Allergy/AdvReac Type Severity Reaction Status Date / Time erythromycin base Allergy Intermediate SWELLING,HI Verified 05/02/21 14:16 VES Penicillins Allergy Intermediate SWELLING,HI Verified 05/02/21 14:16 VES Home Medications Medication Instructions Recorded Confirmed Type acetaminophen 325 mg tablet 325 mg PO QID PRN fever/pain 05/02/21 08/23/25 History (Tylenol) ibuprofen 800 mg tablet 800 mg PO Q8H PRN pain #60 tabs 05/02/21 08/23/25 Rx Past Med/Surg History Problem List (Updated 07/10/23 @ 00:08 by Corona Fagan) HTN (hypertension) (Chronic) Kidney stone (Acute) Medical History HTN (hypertension) Kidney stone Sarcoidosis Surgical History History of appendectomy History of cystoscopy S/P tonsillectomy Family History Other Cancer Heart disease Hypertension Multiple sclerosis Myocardial infarction Social History Smoking Status: Never smoker Preferred Language: Bangladeshi marital status: single current occupational status: employed Feels Safe at Home: Yes Physical Exam Physical Exam: General: A&Ox3. NAD. Cooperative. HEENT: Atraumatic, normocephalic. Vision and hearing grossly intact Pulm: CTAB A&P. -wheezes, -rales, -rhonchi. Symmetrical chest rise. No increased work of breathing. No respiratory distress. Cardiac: RRR, -mrg. Radial pulses intact and symmetrical. Abdominal: Nontender, nondistended, soft. BS present. Extremities: Warm, dry. No pitting edema Results & Data Results & Data Vital Signs (Past 12 Hours) Vital Signs Temp Pulse Pulse Resp BP BP Pulse Ox 08/23/25 14:16 84 17 160/95 H 93 08/23/25 13:20 79 08/23/25 12:46 88 20 98 08/23/25 12:21 36.6 C 88 18 199/98 H 100 O2 Del Method 08/23/25 14:16 Room Air 08/23/25 13:20 08/23/25 12:46 Room Air 08/23/25 12:21 Room Air PG Care Time/CCT Total # of Minutes Spent Total Time Spent with Patient: Total time spent is greater than 50% in coordination of care (as documented) at patient's floor/unit and/or counseling patient: Coding Level of Care Code 37429 INT INP/OBS CARE 3/75MIN Diagnoses Chest pain R07.9
[2025-08-23] MEDS ORDERED: LABETALOL HCL IV 5 MG/ML 20ML IV PRN ×2 (15:00→17:39)
[2025-08-23] MEDS: OPTIRAY 320 125ml IV ONE (15:12)
[2025-08-23] MEDS: NITROGLYCERIN 2% OINTMENT 30GM TUBE EXT SCH ×4 (15:26→21:30)
[2025-08-23] MEDS: METOPROLOL TARTRATE 25 MG TAB PO ONE (15:33)
[2025-08-23 16:05] LABS: Appearance Urine Cloudy (Clear); Bacteria Urine Automated None Seen (None Seen); Cast Urine Automated 0-2 /lpf (0-2); Epithelial Cell Urine Auto 0-2 /hpf (0-2); Glucose Urine UA Negative (Negative); RBC Urine Automated 0-2 /hpf (0-2); WBC Urine Automated 21-50 /hpf (0-5)
--- NOTE | 2025-08-23 16:25 | CT Scan Report ---
EXAM: CT Angiography Chest Without and With Intravenous Contrast INDICATION: Recent sharp left chest pain radiating to the left arm. Constant pressure. TECHNIQUE: Axial computed tomographic angiography images of the chest without and with intravenous contrast. Sagittal and coronal reformatted images were created and reviewed. This CT exam was performed using one or more of the following dose reduction techniques: automated exposure control, adjustment of the mA and/or kV according to patient size, and/or use of iterative reconstruction technique. MIP reconstructed images were created and reviewed. CONTRAST: 115 ml of Optiray 320 was administered intravenously. COMPARISON: 12/13/2020 FINDINGS: Pulmonary arteries: No abnormality noted. No pulmonary embolism. Aorta: No acute change noted. No thoracic aortic aneurysm or dissection. Lungs and pleural spaces: No abnormality noted. No mass. No consolidation. No significant effusion. No pneumothorax. Heart: No abnormality noted. No cardiomegaly. No significant pericardial effusion. No evidence of RV dysfunction. Bones/joints: No acute or atypical chronic changes. Soft tissues: No abnormality noted. Lymph nodes: No abnormality noted. No enlarged lymph nodes. Liver: Stable large fatty liver. IMPRESSION: 1. No aortic aneurysm, dissection or pulmonary embolus. 2. Large fatty liver. ACT 112: N/A Electronically signed by Dilma Hendrickson 08-23-2025 4:24 PM
[2025-08-23] MEDS: HEPARIN SOD (PORCINE) 1000 UNIT/ML ONE (16:53)
[2025-08-23] MEDS: HEPARIN 25000 UNIT/500 ML D5W IV ONE (16:53)
[2025-08-23] MEDS: HEPARIN SOD (PORCINE) 1000 UNIT/ML IV ONE (17:06)
[2025-08-23] MEDS: HEPARIN 25000 UNIT/500 ML D5W 25,000 UNITS/500 ML BAG IV SCH (17:07)
[2025-08-23] MEDS: Heparin IV Adult Wt-Based Low-Dose w/ INITIAL Bolus Protocol IV STA (17:10)
[2025-08-23] MEDS: METOPROLOL TARTRATE 25 MG TAB PO SCH (20:54)
[2025-08-23] MEDS ORDERED: Nursing to Pharmacy Communication SCH (21:30)
[2025-08-24] LABS: ANTI-Xa, UFH(UnfractionatedHep < 0.10 IU/ml (0.3-0.7)
[2025-08-24] MEDS: HEPARIN SOD (PORCINE) 1000 UNIT/ML IV ONE ×2 (00:33→08:03)
[2025-08-24 06:19] LABS: Hematocrit (blood only) 38.8 % (42.0-52.0); Hemoglobin 14.0 g/dl (14.0-18.0); Immature Granulocytes # (auto) 0.05 K/uL (0.01-0.20); Immature Granulocytes % (auto) 0.5 %; Mean Corpuscular Hemoglobin 31.9 pg (25.0-34.0); Mean Corpuscular Volume 88.4 fL (80.0-100.0); Platelet Count 262 K/uL (130-400); RDW Standard Deviation 38.7 fL (36.4-46.3); Red Blood Count 4.39 M/uL (4.70-6.10); White Blood Count 9.55 K/ul (4.8-10.8)
[2025-08-24 06:41] LABS: ANTI-Xa, UFH(UnfractionatedHep 0.19 IU/ml (0.3-0.7)
[2025-08-24 07:21] LABS: Anion Gap 9.0 (3-11); Blood Urea Nitrogen 15.0 mg/dl (6-23); Calcium 8.8 mg/dl (8.6-10.3); Carbon Dioxide 25.0 mmol/L (21-32); Chloride 102.0 mmol/L (98-107); Cholesterol 177.0 mg/dl (0-200); Creatinine Clr Calc Pharmacy 151.1 ml/min; Glucose 95.0 mg/dl (70-99(Fasting)); HDL Cholesterol 32.0 mg/dl; Potassium 3.9 mmol/L (3.5-5.1); Sodium 136.0 mmol/L (136-145); Triglycerides 256.0 mg/dl (0-150)
[2025-08-24] MEDS: ASPIRIN 81 MG ECTAB PO SCH (08:11)
[2025-08-24 08:12] VITALS: RESP 17
[2025-08-24] MEDS: ACETAMINOPHEN 325 MG TAB PO PRN (08:12)
[2025-08-24] MEDS ORDERED: METOPROLOL TARTRATE 25 MG TAB PO SCH (09:00)
[2025-08-24 09:31] LABS: Hemoglobin A1C 5.2 % (4.5-5.6)
--- NOTE | 2025-08-24 12:34 | XCELERA ---
[id number] \\[id number]
[2025-08-24 13:18] VITALS: BP 142/79; TEMP 98.2; O2SAT 97
[2025-08-24 13:57] VITALS: PULSE 80
--- NOTE | 2025-08-24 14:13 | Discharge Summary ---
Discharge Summary Date of Service August 24, 2025 Principal Dx & Hospital Course #1 = Principal Diagnosis (1) Chest pain: Chest pain at rest, worsens with exertion Differential includes symptomatic hypertension, unstable angina, lower suspicion for dissection Given some pain radiating into his back and acute on chronic hypertension CT obtained to rule out dissection --> CTA-chest: No evidence of dissection Multiple family members with heart attacks at a young age. He has a BMI of 50, and uses tobacco products. EKGs without ischemic changes on admission and troponin is negative. Slightly reassuring that despite pain over 4 days he has a negative troponin; however recurrent chest pain at rest which has been quickly recurrent and exacerbated with any exertion and associated with left arm discomfort, sweating, and dyspnea is concerning for unstable angina. Pain is resolved consistently with sublingual nitro, required redosing while in the ER. Heart score moderate risk. Treadmill stress test ordered for 08/24. Suboptimal but informative stress echocardiogram 07/2017. Continue risk factor management per cardiology. No specific cardiology follow-up required at this time. Hypertension Metoprolol 12.5 mg twice daily started during hospital stay. Tolerated well. Advised to follow-up in primary clinic in 7 days for recheck and ongoing titration, likely additional second blood pressure management agent - Patient advised to get a home blood pressure cuff monitor as well as a scale and monitor both, record daily and take those reports to the primary clinic for follow-up Suspected MELQUIADES - Neck Circumference: 55cm at time of admit - Bicarb 32 on admit. - STOP-BANG score 7 points. - High risk for and almost certainly has sleep apnea contributing to his worsening hypertension, and w/ symptomatic daytime sleepiness - Will trial CPAP while inpt - Recommend formal outpt sleep study to qualify for home CPAP on discharge Hyperlipidemia - Atorvastatin 20 mg started during hospitalization, discharging medication outpatient. Advised to follow-up with primary clinic for recheck and ongoing management Obesity and contributing risk factors to all of the above. -Patient was interested in GLP1 medications. Advised follow-up with primary clinic, he would likely qualify for Zepbound based on uncontrolled sleep apnea. Admission HPI Per Admitting Provider 35yo M with hx of BMI 50.5, tobacco abuse, early family history of PA, who presents with recurrent chest pain worsened with exertion which has occurred at rest the past 3 days which resolved immediately upon receiving sublingual nitro but which subsequently occurred in the emergency department and again resolved following nitro and blood pressure control. DDx includes symptomatic hypertension and unstable angina. He does not have territorial ST elevations or T wave changes on admitting EKG. Per Sign out: chest pain on at rest worsening on exertion with radiation into LUE and dyspnea. Recurrent chest pain today. Intermittent over the morning Systolic 200s. 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 SHort of breath and slightly sweaty with the episode. Since then Initial stabbing pain faded, but has the feeling 'of a lead vest sitting on my chest' intermittently since then. Has not copmletely gone away, much generally minimal and 1/10 in intensity but If he exerts himself at all or walks any meaningful distance the discomfort immediately comes back and he breaks out in cold sweats. Most concerning symptom is the chest heaviness. Had a low grade mild ache since , but then finally improved after taking nitro in the ER. REcurred while in the ER, then completely resolved again. Has never had chest pain like this before Pain in his chest goes a little bit into his back and then down his arm heaviness/discomfort did not completely resolve at home and was a ~1/10 until he received nitro. He had been diagnosed with high blood pressure in the past however much higher currently than it usually is. 0.5 of snuff tobacco per day. No cigarettes ETOH on sunday nights. ~6 beers on a Sunday. 6 throughout the weekend for total of 12 over the weekend. NO shakes/withdrawal through the week 4-5 days without ETOH STOPBANG 7. Male. Neck circumference measured at 55cm. +snoring, +daytime sleepiness, +periods of apnea per family, +HTN, BMI 50.5, Age <50, Male gender Mother: 2 PA, 3 stents. Multiple PA in her 40s, was a heavy smoker. MGM/MGF: MIs in 50s. Father: Unsure of history, is incarcerated. PGF with PA in 60s. NO history of strokes no hx of DM Not sure about history of HLD Pt is not sure if he has high lipids, thinks he was tested many years ago Medical History: Reviewed Medications: Reviewed Surgical History: Reviewed Family history: Reviewed Allergies: Reviewed. Allergic to PCN, erythromycin. Has had contrast dye without allergic rxn in the past Social History: As noted Code Status: Full Code Discharge Exam General: A&Ox3. NAD. Cooperative. HEENT: Atraumatic, normocephalic. Vision and hearing grossly intact. Pupils equal and reactive to light, sclera clear and anicteric Pulm: CTAB A&P. -wheezes, -rales, -rhonchi. No increased work of breathing. No respiratory distress. Cardiac: RRR. -mrg. Radial pulses intact and symmetrical. Abdominal: Nontender, nondistended, soft. BS present. Ext: No Edema, Moves all extremities equally NEURO: A&O as above, no focal deficits Skin: warm, moist. Discharge Plan Discharge Items Patient Disposition: Home - Self-Care Reason For Visit: UNSTABLE ANGINA Discharge Diagnosis: Chest pain Hypertensive urgency Hypercholesterolemia Obesity Probable sleep apnea Condition on Discharge: Serious Health Concerns: Chest Pain Elevated Blood Pressure - You were started on metoprolol during this hospital stay. As we were able to manage your blood pressure your symptoms improved. The stress test with cardiology although slightly less than ideal did not indicate any underlying active coronary disease. Her symptoms are very likely related to the elevated blood pressure. Please take the metoprolol twice daily as prescribed. Follow-up with primary clinic within a week to discuss additional medications. It would be beneficial to purchase a home blood pressure cuff and check her blood pressure at home in the morning every morning and record those values and upload. Take this with you the primary clinic during follow-up visits - If your blood pressure is above 160 for the top number or 100 for the bottom number on repeat checks, please contact the primary clinic if the top number is above 180 on repeat checks and you are having symptoms of before please report to the closest emergency department for recheck Probable sleep apnea - You have several respecters for uncontrolled sleep apnea. Most beneficial test will be a referral for a home sleep study through the primary clinic. Please discuss this with them in a week of your discharge Overweight -Weight is a risk factor for elevated blood pressure as well as sleep apnea. You may discuss weight management WITH primary clinic for your follow-up advised to schedule several visits in the next several months to establish an appropriate and manageable care plan Goals: Please be seen within the primary clinic within 5-7 days for ongoing blood pressure management, cholesterol medication management referral for sleep study and hospital follow-up Activity: Resume your previous activity Non-emergency contact: Primary Care Provider Call non-emergency contact if: you have any medication questions, your symptoms worsen and your pain is not controlled Follow-up/Referrals: PCP,NO [Primary Care Provider] - Diet: Heart Healthy Addtl Attending Provider Instructions: 1) follow-up visit for titration of metoprolol and new blood pressure medicat ions as needed 2) follow-up hyperlipidemia and titrate statin 3) referral for sleep study 4) discussed weight management options Pending Studies at Discharge: No Stand-Alone Forms: My [employer], Smoking Cessation Medications and DC Order Prescriptions: New atorvastatin 20 mg Tablet 20 mg PO QAM Qty: 30 0RF aspirin 81 mg Tablet,Delayed Release (Dr/Ec) 81 mg PO DAILY Qty: 30 0RF metoprolol tartrate 25 mg Tablet 12.5 mg PO BID Qty: 60 0RF Discontinued acetaminophen [Tylenol] 325 mg Tablet 325 mg PO QID PRN (Reason: fever/pain) ibuprofen 800 mg tablet 800 mg PO Q8H PRN (Reason: pain) Qty: 60 0RF Discharge Orders: Discharge Order (Routine); Ordered 08/24/25 Ordered By: Aime Amin/Other Patient Handouts: Obesity and Its Impact on Health, Understanding High Blood Pressure, Your Heart Risk Action Plan, ED Sleep Apnea, Obstructive Admission Data Admit Date/Time: 08/23/25 16:31 Attending Provider: Aime Peters Admit Provider: Mike Moreno Primary Care Provider: PCP,NO Other Providers: Mike Moreno Hospital Stay Data Consultations 08/23/25 14:24 ED Decision to Admit Stat Diagnostic Imagining Performed 08/23/25 14:53 CTA chest wo/w con [CT angio chest wo/w con] Stat Pending Results Patient Have Any Pending Studies at Discharge: No Discharge Instructions Given to Patient (Per Discharging Provider) 1) follow-up visit for titration of metoprolol and new blood pressure medications as needed 2) follow-up hyperlipidemia and titrate statin 3) referral for sleep study 4) discussed weight management options Total Time Total Time Spent Total Time Spent (In Minutes): 45 minutes spent reviewing results with specialists, revieweing follow-up plan and time frame with patient at the bedside and coordination of appropriate follow-up Coding Level of Care Code 11181 INP/OBS DISCH >30 MIN Diagnoses Chest pain R07.9
[2025-08-24] MEDS: ATORVASTATIN 20 MG TAB PO SCH (14:18)
== END 2025-08-24 14:48 | disposition home or self-care (01) ==
LOC: 4W 12:16 → ED 12:16 → SUATTDRO 16:31 → 4W 19:30